=== PATIENT | female | born 1930 | race Caucasian/White ===

== ENCOUNTER 2017-02-28 15:11 | Inpatient (IN) | payer OTHER, MEDICARE ==
[~2017-02-28] VITALS: Ht 162.6 cm; Wt 97.2 kg
--- NOTE | ~2017-02-28 | O ---
[facility] [place] [address] [place] [address] OPERATIVE REPORT Name: MARLIN LOZANO Room #: 459-P [facility] IN [facility]#: [id number] Admission: 02/28/17 Attend Phys: Adolfo Sullivan MD Discharge: 03/09/17 Date of : [birth year] Report #: [id number] THIS REPORT FOR: //name// CC: Aodlfo Sullivan DATE OF SERVICE: 03/08/2017 DATE OF SERVICE: 03/08/2017 PREOPERATIVE DIAGNOSIS: Infected right total knee arthroplasty. POSTOPERATIVE DIAGNOSIS: Infected right total knee arthroplasty. PROCEDURE: Arthroscopic incision and drainage, right total knee arthroplasty. SURGEON: Delon Palencia MD. WIRE STITCHER OPERATOR: Nichol Pelayo PA-C. ANESTHESIA: LMA. TOURNIQUET TIME: 22 minutes. ESTIMATED BLOOD LOSS: Minimal. COMPLICATIONS: None. SPECIMENS: Fluid was sent for culture. CONDITION UPON LEAVING THE OPERATING ROOM: Stable. INDICATIONS FOR PROCEDURE: The patient is an 86-year-old female who has had at least a week if not 2 weeks of right knee pain and cellulitis of her right knee. She had an aspiration of her knee, found to have 49,000 white cells with 78% of these being neutrophils. She also had a positive blood culture for Strep that was present. She had an infected right total knee. After discussion with she and her son, they elected for attempt at salvage with arthroscopic I and D, and antibiotic suppression. DESCRIPTION OF PROCEDURE: Risks, benefits, alternatives, complications were discussed in detail with the patient including but not limited to risk of anesthesia, risk of damage to nerves, arteries, blood vessels, risk for infection, bleeding, continued infection, bleeding and need for reoperation. Informed consent was obtained from the patient. Right knee was appropriately marked in the preoperative holding area. WILLIS rodriguezmeronald [facility] [address] [place] [address] OPERATIVE REPORT Name: MARLIN LOZANO Bridgett Room #: 459-P [facility] IN [facility]#: [id number] Admission: 02/28/17 Attend Phys: Adolfo Sullivan MD Discharge: 03/09/17 Date of : [birth year] Report #: [id number] was given for preoperative antibiotics. She was brought to the operating room and placed in supine position on operating room table. LMA anesthesia was induced without complication. Tourniquet was placed on the right thigh. Right lower extremity was prepped and draped in normal sterile fashion. Timeout was performed properly identifying the patient and procedure as well as the instrumentation. All in the operating room were in agreement. Right lower extremity was elevated, tourniquet was inflated, tourniquet time was 23 minutes. Standard anterolateral portal was established with an #11 blade through the skin. Arthroscope was introduced into the patellofemoral compartment and there was approximately 15 mL of cloudy fluid expressed from the knee. Cultures of this were taken. Diagnostic arthroscopy was begun. A superior lateral portal was established with an outflow and there was some hypertrophic synovium in the anterior compartment and the medial and lateral gutters. A medial portal was established under arthroscopic visualization. An arthroscopic shaver was used to debride the synovium. After this, 9 liters of fluid was cycled through the knee and suctioned out for irrigation of the joint. A Hemovac drain was placed through the superior lateral portal and left in. The incision was closed with 3-0 nylon. Soft dressing of Adaptic, 4 x 4, Webril, Mitch wrap were applied. The patient tolerated this procedure well and went to the recovery room under the care of anesthesia postoperatively. <ELECTRONICALLY SIGNED> By: Delon Palencia MD 03/10/17 0727 1303 1506 Delon Palencia MD /nt
--- NOTE | ~2017-02-28 | HC ---
[facility] [place] [place] [address] CONSULTATION Name: MARLIN LOZANO Bridgett Room #: 459-P ADM IN M.R.#: [id number] Admission: 02/28/17 Attend Phys: Adolfo Sullivan MD Discharge: Date of : [birth year] Report #: [id number] THIS REPORT FOR: //name// CC: Adolfo Sullivan REASON FOR CONSULTATION: I was asked to evaluate concerning fever, lethargy and bacteremia. 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 She has issues with lymphedema in the right lower extremity. Yesterday, she developed generalized weakness, fever, chills, and increased discomfort in her right leg. Hospitalized and found to be in atrial fibrillation with rapid ventricular response. She had leukocytosis. Blood cultures were drawn and one of two showing streptococci. Placed on ceftriaxone. Her temperature has improved. Her generalized weakness persist. She has had mild headache. No cough or sputum production. No nausea or vomiting. She has had some loose stools. No dysuria or frequency. She has had issues with lower extremity edema on the right side for quite some time. She has had a mastectomy on the right and notices intertrigo in this region as well as in her groin. REVIEW OF SYSTEMS: Otherwise, noncontributory. ALLERGIES: AMOXICILLIN, MORPHINE, and SULFA. MEDICATIONS: As noted on her MAR, now on the ceftriaxone. PAST MEDICAL HISTORY, FAMILY HISTORY, AND SOCIAL HISTORY: Otherwise, unchanged from her history and physical, which was reviewed. She is a nonsmoker and has had a right total knee arthroplasty. Other history as noted. PHYSICAL EXAMINATION: VITAL SIGNS: Afebrile and hemodynamically stable. Maximum temperature was 99.7 degrees. GENERAL: She is alert and cooperative on 2 liters of oxygen per nasal cannula. Moderately obese. Intertrigo beneath the right chest skin fold and inner perineum. HEENT: Unremarkable. NECK: Supple. LUNGS: Clear. HEART: Irregular. ABDOMEN: Soft and nontender. EXTREMITIES: Right lower extremity had venous stasis dermatitis changes to the right lower extremity with 2+ edema. She had erythema extending from the ankle up to the mid portion of her pretibial skin. There is tenderness in the medial thigh as well. No tenderness in the groin. Pulses in the right foot were [facility] [address] [place] [address] CONSULTATION Name: MARLIN LOZANO Bridgett Room #: 459-P [facility] IN [facility]#: [id number] Admission: 02/28/17 Attend Phys: Adolfo Sullivan MD Discharge: Date of : [birth year] Report #: [id number] normal. Sensation was intact. LABORATORY STUDIES: Blood cultures as noted above. Sodium 137, potassium 3.5, bicarbonate 24, creatinine 0.8. Hemoglobin 13.2, white count 20.8 with 5% bands, platelet count 212,000. Lactate 1.2. Liver function tests normal. Chest x-ray clear. Urinalysis unremarkable. IMPRESSION: An 86-year-old with sepsis syndrome, noting tachycardia, generalized weakness, leukocytosis and bacteremia, suspect related to her right lower extremity cellulitis and lymphangitis. Recommend continuing ceftriaxone at a current dose. We will await identification of the bloodstream organism. Follow her white count. Leg elevation and also treat her yeast dermatitis. <ELECTRONICALLY SIGNED> By: Tad Hancock MD 03/02/17 2123 1751 1841 Tad Hancock MD /nt
--- NOTE | ~2017-02-28 | EKG ---
[address] [employer] [address] ELECTROCARDIOGRAM REPORT Name: BLAKEMARLIN A Room #: 459-P [facility] IN [facility]#: [id number] Admission: 02/28/17 Attend Phys: Adolfo Sullivan MD Discharge: Date of : [birth year] Report #: [id number] THIS REPORT FOR: //name// [facility] ED Test Date: 2017-02-28 Test Time: 15:15:59 Pat Name: MARLIN LOZANO Department: Room: 170 Gender: F Food Specialist: ANUSHKA : 1930 Requested By: Enrrique Mathew Order Number: [id number] MD: Scot Berman Measurements Intervals Bartley Rate: 123 P: FL: QRS: 42 QRSD: 76 T: -41 QT: 335 QTc: 480 Interpretive Statements Atrial fibrillation Low voltage, precordial leads Nonspecific ST and T wave abnormality Compared to ECG 02/16/2015 12:12:44 No significant change was found Electronically Signed On 03-02-2017 7:14:09 CDT by Scot Berman [email or web address] <ELECTRONICALLY SIGNED> By: Scot Berman MD, [facility] 03/02/17 0714 1515 1515 Scot Berman MD, [facility] /EPI
--- NOTE | ~2017-02-28 | HC ---
[facility] [place] [address] [place] [address] CONSULTATION Name: MARLIN LOZANO Bridgett Room #: 459-P ADM IN ..#: [id number] Admission: 02/28/17 Attend Phys: Adolfo Sullivan MD Discharge: Date of : [birth year] Report #: [id number] THIS REPORT FOR: //name// CC: Adolfo Sullivan DATE OF SERVICE: 03/03/2017 HISTORY OF PRESENT ILLNESS: The patient is an 86-year-old white female with prior history of hypertension and prior pulmonary embolism in 2009; was out in the community for a Dermatology visit when she could not get out of the car. She was admitted with weakness, noted to have atrial fibrillation with a rapid ventricular rate. She was placed on IV Cardizem. [place] [address]. She was diagnosed with sepsis secondary to cellulitis, right lower extremity. She was noted to have acute hypoxemic respiratory failure; likely mild COPD exacerbation. Cardiology has been closely involved as well as Infectious Disease. She does have a total knee arthroplasty that is painful and she is on ceftriaxone. Infectious Disease is ordered an x-ray and Orthopedics is to evaluate. She has had some issues with urinary incontinence and has a Renee catheter. We are seeing her in rehabilitation medicine consultation. PAST MEDICAL HISTORY: Includes hysterectomy, right mastectomy, hypertension, degenerative arthritis of both knees, prior right total knee arthroplasty 2009, femoral vein through popliteal vein DVT, left lung pulmonary embolism, left leg DVT extending from the left common, atrial fibrillation. HABITS: No history of tobacco or ETOH. MEDICATIONS: Please see the full medication listing. ALLERGIES: AMOXICILLIN, MORPHINE AND SULFA. SOCIAL HISTORY: Lives in a condominium alone. Zero to two steps in, legally blind. She does have a 4-wheeled walker, but apparently fell and it is not working very well, so she has been using a 3-wheeled walker. She does have sleep apnea, is on CPAP with 4 liters at night. She was not on oxygen during the day. There is a son that is in the area that drives her to her appointments. REVIEW OF SYSTEMS: She is noted to be legally blind with macular degeneration. No current complaints of chest pain, shortness of breath or abdominal discomfort. She has the right knee pain with the prior total knee arthroplasty. No specific complaints of ankle discomfort or left lower extremity pain per se. She does complain of overall generalized weakness. She does have the catheter in her bladder for her noted incontinence. [facility] [address] [place] [address] CONSULTATION Name: MARLIN LOZANO Room #: 459-P [facility]#: [id number] Admission: 02/28/17 Attend Phys: Adolfo Sullivan MD Discharge: Date of : [birth year] Report #: [id number] PHYSICAL EXAMINATION: GENERAL: An 86-year-old white female in no obvious distress. VITAL SIGNS: Last recorded temperature 97.7, pulse 98, respirations 20, blood pressure 126/71. The patient is alert, appropriate. HEENT: Facies are symmetric. Nasal prong O2 is in place. EXTREMITIES: She has functional range of motion of both upper extremities. Strength is a grade 4- to 3+/5. DTRs are trace to 1. In her lower extremities, there is some residual erythema of the right lower extremity. She has an old right knee incision, which appears well healed. She does have some discomfort with attempted movement of that right lower extremity. I would grade her strength at probably a 3+/5. Left lower extremity strength is probably 3+ to 4-/5. No focal calf swelling. NEUROLOGIC: Tone appeared to be intact. She is min assist with sit to stand. She ambulated 45 feet front-wheeled walker, contact guard assistance. She is currently on 2-1/2 liters nasal prong O2. IMPRESSION: An 86-year-old white female with the following problem list: 1. Medical complexity with generalized debilitation. 2. Sepsis secondary to cellulitis of the right lower extremity with bacteremia. 3. Acute hypoxic respiratory failure likely due to mild chronic obstructive pulmonary disease exacerbation. 4. Atrial fibrillation with rapid ventricular rate. 5. Hypertension. 6. History of pulmonary embolism. 7. Legally blind. PLAN: Agree with x-ray of the right knee and Orthopedics involvement. She will likely benefit from an acute in-hospital inpatient rehabilitation stay when medically cleared. At this point, we will follow along with you. By: 1435 1515 Arturo Russo MD /
[~2017-02-28 15:11] MED LIST: ACETAMINOPHEN-1 EAC1 PO; ADULT LOW DOSE81 MG PO; ALDACTONE50 MG PO; ASPIRIN325 PO; CARDIZEM CD240 MG PO; COUMADIN 1MG TAB1 M1 PO; COUMADIN 4 MG TA4 M1 PO; FUROSEMIDE 40 M40 M1 PO; GNP CALCIUM PO; HYDROCODON-ACE1 EAC7 PO; HYDROCODON-ACE1 EAC8 PO; IMDUR 30 MG TAB30 M1 PO; LANOXIN 0.250.25 M1 PO; LANOXIN 0.250.25 MG PO; LASIX 20 MG TAB20 MG PO; LATANOPROST 0.2.5 ML; NORCO 5-325 TA1 EACH PO; PRESERVISION T1 EACH PO; TENORMIN25 MG PO; TIMOPTIC2.5 M1; VALIUM2 MG PO
[2017-02-28 15:12] VITALS: BP 157/82
[2017-02-28 15:53] LABS: HEMATOCRIT 39.8 % (37.0-47.0); HEMOGLOBIN 13.2 gm/dL (12.0-15.0); MCH 26.8 pg (26.0-34.0); MCHC 33.2 g/dL (28.0-37.0); MCV 80.8 fL (80.0-100.0); PLATELET COUNT 212 thou/uL (150-400); RBC 4.92 mil/uL (4.20-5.00); RDW 14.4 % (10.5-14.5); WBC 20.8 thou/uL (4.0-11.0)
[2017-02-28 15:54] LABS: MANUAL DIFF YES
[2017-02-28 16:02] LABS: ANION GAP 10 mmol/L (7-16); BUN 15 mg/dL (7-18); CALCIUM 9.4 mg/dL (8.5-10.1); CHLORIDE 104 mmol/L (98-107); CO2 25 mmol/L (21-32); CREATININE 0.9 mg/dL (0.6-1.0); GLUCOSE 104 mg/dL (74-106); POTASSIUM 3.6 mmol/L (3.5-5.1); SODIUM 139 mmol/L (136-145)
[2017-02-28 16:14] LABS: ALBUMIN 3.6 g/dL (3.4-5.0); ALKALINE PHOSPHATASE 71 U/L (46-116); NT-PRO BRAIN NAT PEPTIDE 1053 pg/mL (<300); SGOT 18 U/L (15-37); SGPT 17 U/L (30-65); TOTAL BILIRUBIN 0.7 mg/dL (<0.1-1.0); TOTAL PROTEIN 6.9 g/dL (6.4-8.2); TROPONIN-I < 0.04 ng/mL (<0.04-0.07)
[2017-02-28 16:45] LABS: ABSOLUTE NEUTROPHILS 18.1 thou/uL (1.4-8.2); PLATELET ESTIMATE NORMAL; TOTAL CELL COUNT 100
[2017-02-28] MEDS ORDERED: PRINIVIL20 M1 PO (17:15)
[2017-02-28 17:16] LABS: APTT 36.4 Seconds (24.5-32.8); INR 2.3; PROTIME 23.4 Seconds (9.3-11.4)
[2017-02-28] MEDS ORDERED: MAXZIDE-25 MG1 EACH PO (17:16)
[2017-02-28 17:31] LABS: URINE BILIRUBIN NEGATIVE (Negative); URINE BLOOD 1+ (Negative); URINE COLOR YELLOW; URINE GLUCOSE-RANDOM* NEGATIVE (Negative); URINE KETONES TRACE (Negative); URINE LEUKOCYTES-REFLEX NEGATIVE (Negative); URINE PROTEIN (DIPSTICK) NEGATIVE (Negative); URINE UROBILINOGEN 0.2 E.U./dl (0.2-1.0)
[2017-02-28 17:45] LABS: CASTS None Seen /LPF (None Seen); CRYSTALS None Seen /LPF (None Seen); SQUAMOUS 0-3 Few /LPF (0-3); URINE RBC 3-10 Few /HPF (0-2); URINE WBC-REFLEX None Seen /HPF (0-5)
[2017-02-28 17:55] VITALS: BP 172/95
[2017-02-28 18:27] VITALS: BP 164/71
[2017-02-28 18:58] VITALS: BP 151/65
[2017-03-01] VITALS: BP 161/84
[2017-03-01 04:04] VITALS: BP 151/71
[2017-03-01 06:11] LABS: HEMATOCRIT 37.2 % (37.0-47.0); HEMOGLOBIN 12.4 gm/dL (12.0-15.0); MCH 26.7 pg (26.0-34.0); MCHC 33.3 g/dL (28.0-37.0); MCV 80.1 fL (80.0-100.0); RBC 4.65 mil/uL (4.20-5.00); RDW 14.2 % (10.5-14.5); WBC 16.8 thou/uL (4.0-11.0)
[2017-03-01 06:20] LABS: CALCIUM 9.3 mg/dL (8.5-10.1); CREATININE 0.8 mg/dL (0.6-1.0); POTASSIUM 3.5 mmol/L (3.5-5.1)
[2017-03-01 08:03] VITALS: BP 158/92
[2017-03-01 16:20] VITALS: BP 155/93
[2017-03-02 04:42] VITALS: BP 188/103
[2017-03-02 07:05] VITALS: BP 172/82
[2017-03-02 08:00] VITALS: BP 172/82
[2017-03-02 11:06] LABS: HEMATOCRIT 39.8 % (37.0-47.0); HEMOGLOBIN 13.3 gm/dL (12.0-15.0); MCH 26.8 pg (26.0-34.0); MCHC 33.4 g/dL (28.0-37.0); MCV 80.2 fL (80.0-100.0); RBC 4.96 mil/uL (4.20-5.00); RDW 14.2 % (10.5-14.5); WBC 14.6 thou/uL (4.0-11.0)
[2017-03-02 11:11] LABS: CALCIUM 9.8 mg/dL (8.5-10.1); CREATININE 0.8 mg/dL (0.6-1.0); POTASSIUM 3.6 mmol/L (3.5-5.1)
[2017-03-02 12:06] VITALS: BP 151/78
[2017-03-02 19:37] VITALS: BP 140/80
[2017-03-03 05:06] VITALS: BP 141/72
[2017-03-03 07:21] LABS: HEMATOCRIT 40.5 % (37.0-47.0); HEMOGLOBIN 13.5 gm/dL (12.0-15.0); MCH 26.8 pg (26.0-34.0); MCHC 33.3 g/dL (28.0-37.0); MCV 80.3 fL (80.0-100.0); RBC 5.05 mil/uL (4.20-5.00); RDW 14.3 % (10.5-14.5); WBC 13.5 thou/uL (4.0-11.0)
[2017-03-03 07:32] LABS: CALCIUM 10.4 mg/dL (8.5-10.1); CREATININE 0.8 mg/dL (0.6-1.0); POTASSIUM 3.5 mmol/L (3.5-5.1)
[2017-03-03 08:20] VITALS: BP 134/66
[2017-03-03 11:42] VITALS: BP 126/71
[2017-03-03 16:24] VITALS: BP 134/71
[2017-03-03 19:48] VITALS: BP 109/65
[2017-03-04 04:20] VITALS: BP 121/74
[2017-03-04 07:54] LABS: HEMATOCRIT 39.1 % (37.0-47.0); HEMOGLOBIN 13.3 gm/dL (12.0-15.0); MCH 27.1 pg (26.0-34.0); MCV 79.8 fL (80.0-100.0); RBC 4.9 mil/uL (4.20-5.00); RDW 14.4 % (10.5-14.5); WBC 10.3 thou/uL (4.0-11.0)
[2017-03-04 08:04] LABS: CREATININE 0.8 mg/dL (0.6-1.0); POTASSIUM 3.1 mmol/L (3.5-5.1)
[2017-03-04 08:05] VITALS: BP 128/78
[2017-03-04 08:06] LABS: PROTIME 19.2 Seconds (9.3-11.4)
[2017-03-04 12:00] VITALS: BP 118/64
[2017-03-04 13:57] LABS: BF NUCLEATED CELLS 49802; BF RBC 19666
[2017-03-04 14:14] LABS: BF CRYSTALS No Crystals seen
[2017-03-04 14:23] LABS: BF NEUTROPHILS 81
[2017-03-04 14:27] LABS: CLARITY CLOUDY; COLOR YELLOW; TOTAL VOLUME 10 mL
[2017-03-04 14:29] LABS: MANUAL DIFF YES
[2017-03-04 16:00] VITALS: BP 116/68
[2017-03-04 20:11] VITALS: BP 126/70
[2017-03-05 04:28] VITALS: BP 123/67
[2017-03-05 07:15] VITALS: BP 121/68
[2017-03-05 11:30] VITALS: BP 113/56
[2017-03-05 15:07] VITALS: BP 112/59
[2017-03-05 19:37] VITALS: BP 111/53
[2017-03-06 04:24] VITALS: BP 121/62
[2017-03-06 07:19] VITALS: BP 116/73
[2017-03-06 10:36] LABS: HEMOGLOBIN 13.5 gm/dL (12.0-15.0); MCHC 33.6 g/dL (28.0-37.0); MCV 80.4 fL (80.0-100.0); RBC 4.97 mil/uL (4.20-5.00); RDW 14.3 % (10.5-14.5); WBC 12.8 thou/uL (4.0-11.0)
[2017-03-06 10:47] LABS: CALCIUM 10.8 mg/dL (8.5-10.1); CREATININE 0.9 mg/dL (0.6-1.0); POTASSIUM 4.1 mmol/L (3.5-5.1)
[2017-03-06 11:04] VITALS: BP 125/80
[2017-03-06 15:07] VITALS: BP 116/78
[2017-03-06 20:19] VITALS: BP 133/57
[2017-03-07 04:37] VITALS: BP 111/64
[2017-03-07 04:46] LABS: HEMATOCRIT 38.3 % (37.0-47.0); HEMOGLOBIN 12.9 gm/dL (12.0-15.0); MCH 26.9 pg (26.0-34.0); MCHC 33.7 g/dL (28.0-37.0); MCV 79.9 fL (80.0-100.0); RBC 4.79 mil/uL (4.20-5.00); RDW 14.3 % (10.5-14.5); WBC 13.3 thou/uL (4.0-11.0)
[2017-03-07 05:15] LABS: APTT 48.5 Seconds (24.5-32.8); PROTIME 19.8 Seconds (9.3-11.4)
[2017-03-07 05:41] LABS: CALCIUM 10.7 mg/dL (8.5-10.1); CREATININE 0.9 mg/dL (0.6-1.0); POTASSIUM 4.6 mmol/L (3.5-5.1)
[2017-03-07 07:33] VITALS: BP 122/62
[2017-03-07 11:52] VITALS: BP 109/56
[2017-03-07 16:05] VITALS: BP 131/78
[2017-03-07 19:20] VITALS: BP 115/57
[2017-03-08] VITALS (11 sets, daily range): BP systolic 110–140; BP diastolic 45–87
[2017-03-08 07:05] LABS: HEMATOCRIT 38.6 % (37.0-47.0); HEMOGLOBIN 13.1 gm/dL (12.0-15.0); MCH 27.2 pg (26.0-34.0); MCV 79.8 fL (80.0-100.0); PLATELET COUNT 381 thou/uL (150-400); RBC 4.83 mil/uL (4.20-5.00); RDW 14.4 % (10.5-14.5); WBC 11.8 thou/uL (4.0-11.0)
[2017-03-08 07:08] LABS: MANUAL DIFF YES
[2017-03-08 07:21] LABS: CALCIUM 10.5 mg/dL (8.5-10.1); MAGNESIUM 2.1 mg/dL (1.8-2.4); POTASSIUM 4.4 mmol/L (3.5-5.1)
[2017-03-08 07:26] LABS: INR 1.7; PROTIME 16.2 Seconds (9.3-11.4)
[2017-03-08 08:11] LABS: ABSOLUTE NEUTROPHILS 8.4 thou/uL (1.4-8.2); METAMYELOCYTES 6 %; MYELOCYTES 1 %; TOTAL CELL COUNT 100
[2017-03-08 08:12] LABS: ANISOCYTOSIS SLIGHT
[2017-03-09 04:13] VITALS: BP 111/52
[2017-03-09 06:33] LABS: HEMATOCRIT 38.4 % (37.0-47.0); HEMOGLOBIN 12.5 gm/dL (12.0-15.0)
[2017-03-09 07:36] VITALS: BP 112/63
[2017-03-09] MEDS ORDERED: AMBIEN 10 MG TA10 MG PO (09:15)
[2017-03-09] MEDS ORDERED: COLACE 100 MG100 MG PO (09:15)
[2017-03-09] MEDS ORDERED: HYDROCODON-ACE1 EAC7 PO (09:15)
[2017-03-09] MEDS ORDERED: OXYBUTYNIN 5 MG5 M1 PO (09:15)
== END 2017-03-09 18:37 | DRG 463 ==
LOC: ER 15:11 → EROBS 17:42 → 4W 17:42
PROVIDERS: Hospitalist; Internal Medicine; Orthopaedic Surgery; Physician Assistant; Specialist
PROC: 0JBN0ZZ Excision of Right Lower Leg Subcutaneous Tissue and Fascia, Open Approach (ICD-10-PCS; principal; 2017-03-08)
PROC: 0S9C4ZX Drainage of Right Knee Joint, Percutaneous Endoscopic Approach, Diagnostic (ICD-10-PCS; principal; 2017-03-08)
DX: T84.53XA Infection and inflammatory reaction due to internal right knee prosthesis, initial encounter (principal); A41.9 Sepsis, unspecified organism; J96.01 Acute respiratory failure with hypoxia; L03.115 Cellulitis of right lower limb; J44.1 Chronic obstructive pulmonary disease with (acute) exacerbation; M00.9 Pyogenic arthritis, unspecified; I48.2 Chronic atrial fibrillation; N81.10 Cystocele, unspecified; N39.46 Mixed incontinence; I10 Essential (primary) hypertension; Z96.651 Presence of right artificial knee joint; H54.8 Legal blindness, as defined in USA; E66.9 Obesity, unspecified; Y83.8 Other surgical procedures as the cause of abnormal reaction of the patient, or of later complication, without mention of misadventure at the time of the procedure; Z68.36 Body mass index [BMI] 36.0-36.9, adult; Z86.711 Personal history of pulmonary embolism; Y92.89 Other specified places as the place of occurrence of the external cause; Z86.718 Personal history of other venous thrombosis and embolism; Z79.01 Long term (current) use of anticoagulants; Z79.899 Other long term (current) drug therapy; Z90.710 Acquired absence of both cervix and uterus; Z90.11 Acquired absence of right breast and nipple; Z88.1 Allergy status to other antibiotic agents; Z88.2 Allergy status to sulfonamides; Z88.5 Allergy status to narcotic agent; Z85.3 Personal history of malignant neoplasm of breast
CPT/HCPCS: 10045; 27001; 50010; 50101; 50405; 51038; 54170; 56526; 62110; 62900; 70005

== ENCOUNTER 2017-03-09 10:50 | Inpatient (IN) | payer OTHER, MEDICARE ==
[~2017-03-09] VITALS: Ht 165.1 cm; Wt 93.7 kg
--- NOTE | ~2017-03-09 | H ---
[facility] [place] [address] [place] [address] HISTORY AND PHYSICAL Name: MARLIN LOZANO Room #: 511-P ADM IN ..#: [id number] Admission: 03/09/17 Attend Phys: Arturo Russo MD Discharge: Date of : [birth year] Report #: [id number] THIS REPORT FOR: //name// CC: Arturo Herr DATE OF SERVICE: 03/09/2017 HISTORY OF PRESENT ILLNESS: The patient is an 86-year-old white female with a prior history of hypertension and prior pulmonary embolism in 2009, was out in the community for dermatology visit, when she could not get out of the car. She was admitted with weakness, noted to have atrial fibrillation with rapid ventricular rate. She is placed on IV Cardizem. She also had an elevated white count of approximately 20,000. She was diagnosed with sepsis secondary to cellulitis, right lower extremity. She was noted to have acute respiratory failure likely mild COPD exacerbation. Cardiology was involved as well as infectious disease. She has a total knee arthroplasty was known to be painful and was noted to have drainage that was purulent appearing. She was diagnosed with an infected right total knee arthroplasty and underwent arthroscopic I and D on 03/08/2017. She is allowed weightbearing as tolerated on the right lower extremity with range of motion as tolerated. She also has some issues with urinary incontinence and has had pelvic floor prolapse. Urology is involved and she has the indwelling Renee catheter. She does have medical complexity with generalized debilitation and is now being admitted for acute in-hospital inpatient rehabilitation. PAST MEDICAL HISTORY: Includes hysterectomy, right mastectomy, hypertension, degenerative arthritis of both knees, prior right total knee arthroscopy 2009, femoral vein through the popliteal vein DVT, left lung pulmonary embolism, left leg DVT extending from the left common, and history of atrial fibrillation. HABITS: No history of tobacco or ETOH. MEDICATIONS: Please see the full medication listing. ALLERGIES: AMOXICILLIN, MORPHINE AND SULFA. SOCIAL HISTORY: Lives in [facility] alone, 0-2 steps in, legally blind. She does have a 4-wheeled walker, but apparently fell and it was not working very well and so she has been using a 3-wheeled walker. She has sleep apnea, is on CPAP with 4 liters at night. Was not on O2 during the day. She has a son in the area that drives to her appointments. REVIEW OF SYSTEMS: She is legally blind with macular degeneration. No current complaints of chest pain, shortness of breath or abdominal discomfort. Some right knee discomfort as expected post the surgery yesterday. She does have the [facility] [address] [place] [address] HISTORY AND PHYSICAL Name: MARLIN LOZANO Bridgett Room #: 511-P [facility] IN ..#: [id number] Admission: 03/09/17 Attend Phys: Arturo Russo MD Discharge: Date of : [birth year] Report #: [id number] pelvic floor prolapse with the incontinence issues premorbidly. PHYSICAL EXAMINATION: GENERAL: She is a pleasant 86-year-old white female in no obvious distress. VITAL SIGNS: Last recorded temperature 97.9, pulse 84, respirations 18, blood pressure 117/69. The patient is alert, pleasant. HEENT: Appeared to be benign. NEUROLOGIC: Cranial nerves grossly intact. Facies are symmetric. CHEST: Sounded clear to auscultation. CARDIOVASCULAR: Regular rate and rhythm. ABDOMEN: Bowel sounds positive, nontender. GENITOURINARY AND RECTAL: Deferred. EXTREMITIES: Functional range of motion of the upper extremities. Strength is a grade 4- to 3+/5. DTRs are trace to 1. Lower extremities, no focal calf swelling, functional range of motion with strength grade 3+ to 4-/5. DTRs are trace to 1. She has been needing assistance with basic functional mobility skills. ASSESSMENT: An 86-year-old white female with the following problem list: 1. Medical complexity with generalized debilitation. 2. Infected right total knee arthroplasty status post arthroscopic I and D 03/08/2017 weightbearing as tolerated. 3. Sepsis secondary to cellulitis of the right lower extremity with bacteremia. 4. Acute hypoxic respiratory failure likely due to mild chronic obstructive pulmonary disease exacerbation. 5. Atrial fibrillation with rapid ventricular rate. 6. Hypertension. 7. History of pulmonary embolism. 8. Legally blind. PLAN: The patient is admitted for an acute in-hospital inpatient rehabilitation stay. From a postadmission physician evaluation perspective, there are no relevant changes since the preadmission screening. Please see the above review of prior and current medical and functional conditions and comorbidities. Please see the patient's previous and current functional status. As far as risk of complication, she does have multiple medical comorbidities as noted above. Initial plan of care involves the interdisciplinary acute inpatient rehabilitation program with the goal of maximizing the patient's functional independence, so that she can hopefully return back to her prior living situation. Prognosis is reasonably good with estimated length of stay probably at least 10 days to 2 weeks and potentially longer if warranted. Potential barriers would include her multiple medical comorbidities and decreased functional status. The patient meets diagnostic criteria for an acute in-hospital inpatient rehabilitation stay. She meets medical necessity criteria and we will have the [address] [address] HISTORY AND PHYSICAL Name: MARLIN LOZANO Room #: 511-P ADM IN [facility].#: [id number] Admission: 03/09/17 Attend Phys: Arturo Russo MD Discharge: Date of : [birth year] Report #: [id number] [employer] consultant physicians continue to follow while she is on rehabilitation. She does have the tolerance for an acute inpatient rehab level and has appropriate discharge goals back to the home setting. <ELECTRONICALLY SIGNED> By: Arturo Russo MD 03/17/17 1350 1532 1604 Arturo Russo MD /nt
--- NOTE | ~2017-03-09 | D ---
[facility] [address] [place] [address] DISCHARGE SUMMARY Name: MARLIN LOZANO Room #: 511-P [facility] IN M.R.#: [id number] Admission: 03/09/17 Attend Phys: Arturo Russo MD Discharge: 03/21/17 Date of : [birth year] Report #: [id number] THIS REPORT FOR: //name// CC: Arturo Herr DATE OF SERVICE: 03/21/2017 ADDENDUM Missed some therapies on Tuesday, March 18 and 03/19/2017 secondary to nausea and partial small bowel obstruction/ileus. <ELECTRONICALLY SIGNED> By: Arturo Russo MD 04/06/17 1125 0800 0809 Arturo Russo MD /nt
--- NOTE | ~2017-03-09 | HC ---
[facility] [place] [address] [place] [address] CONSULTATION Name: MARLIN LOZANO Room #: 511-P ADM IN M.R.#: [id number] Admission: 03/09/17 Attend Phys: Arturo Russo MD Discharge: Date of : [birth year] Report #: [id number] THIS REPORT FOR: //name// CC: Arturo Herr DATE OF SERVICE: 03/12/2017 NEUROBEHAVIORAL STATUS EXAM ATTENDING PHYSICIAN: Arturo Russo M.D. FIREWORKS DISPLAY SPECIALIST: Adin Mulligan, PhD. CLINICAL PRESENTATION: The patient is an 86-year-old female admitted to the rehabilitation unit at [facility] for a comprehensive inpatient rehabilitation program to improve functional mobility, activities of daily living and self-care and mental status secondary to deficits from medical complexity and generalized debilitation. She had a deterioration in functioning that was marked by confusion and disorientation following an appointment with her bodywork therapist. The patient was admitted and diagnosed with an infected right total knee, sepsis secondary to cellulitis of the right lower extremity, acute hypoxic respiratory failure likely due to mild chronic obstructive pulmonary disease, atrial fibrillation with rapid ventricular rate, hypertension, history of pulmonary embolism and legal blindness. A complete description of her medical condition, history and medications can be found in her medical record. Neuropsychological consultation was requested to provide assistance in the assessment of cognitive and emotional status and to provide recommendations and services. Prior to this most recent admission, she was living independently in her own home. She has 3 sons. Her family is very supportive and provides assistance in the management of medication. The patient has Meals on Wheels brought to the home. 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 TECHNIQUES UTILIZED: Clinical interview, review of medical records, staff consultation and behavioral observation, mini mental status exam 2 standard version, calibrated ideational fluency assessment (letter and category fluency) and brief abstract reasoning test. EXAMINATION FINDINGS: The patient was alert and cooperative with the assessment. She accurately describes events surrounding her admission. However, she does acknowledge an uncertainty about the reason for her hospitalization and for the deterioration in her medical condition. The [address] [address] CONSULTATION Name: MARLIN LOZANO Room #: 511-P [facility] IN .R.#: [id number] Admission: 03/09/17 Attend Phys: Arturo Russo MD Discharge: Date of : [birth year] Report #: [id number] patient does not present with aphasia. There is no evidence of thought disorder. She does not have auditory hallucinations. However, the patient describes visual hallucinations. 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 Her family indicates that she had a retina procedure and then reported visual hallucinations subsequent to the procedure. 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 It is associated with release hallucinations. The performance on the MMSE 2 brief version was extremely low with a raw score of 12 of 16 and a T score 28 and percentile rank of 1. She was 3/3 for initial registration, 3/5 for orientation to time and 5/[address]. She was 1/3 correct for immediate recall of 3 items after a brief time delay and distraction. The patient was 0/5 for serial 7's. She reported having severe macular degeneration that interferes with her ability to complete a naming task. She also was not administered a copying task for the assessment of visual spatial functioning because of the macular degeneration. Letter fluency was extremely low with a raw score of 11, T score 28 and percentile rank of 1. Category fluency was in the borderline range with a raw score 32, T score 31, percentile rank of 3. Total verbal fluency was extremely low with a raw score 33, T score 24 and percentile rank of less than 1. On brief abstract reasoning test, she was 2/8 suggesting moderate to severe impairment with higher level conceptual reasoning. Decreased verbal fluency often suggests an executive dysfunction. DIAGNOSTIC IMPRESSION: Neurocognitive disorder, unspecified, without behavior disorder -- extent to be determined, currently in the moderate to severe range. RECOMMENDATIONS: The patient does recognize difficulty with her cognitive functioning. She also reports tiredness and fatigue and decreased appetite. Increased supervision and structure will be necessary upon her return home. The patient will require increased assistance in the management of medication. She does not appear impulsive; however, increased supervision and structure will be necessary for her to maintain safety. The patient is likely to be experiencing a greater degree of impairment in cognition than would be apparent on the surface. Thank you very much for allowing me to provide the consultation on this patient. <ELECTRONICALLY SIGNED> By: Adin Mulligan, PhD 03/13/17 1535 [id number] Adin Mulligan, PhD /nt
--- NOTE | ~2017-03-09 | PLAN ---
[facility] [place] [address] [place] [address] REHAB UNIT PLAN OF CARE Name: MARLIN LOZANO Room #: 511-P ADM IN M.R.#: [id number] Admission: 03/09/17 Attend Phys: Arturo Russo MD Discharge: Date of : [birth year] Report #: [id number] THIS REPORT FOR: //name// CC: Arturo Herr DATE OF SERVICE: 03/11/2017 PROGRESS NOTE/OVERALL PLAN OF CARE The patient is seen back today in followup. She is in no distress. Temperature 36.9, pulse 76, respirations 20, blood pressure 105/55. The patient is alert, pleasant. HEENT appeared to be benign. She does not have any calf swelling. Sit to stand transfers are mod assist and she is ambulating 15 feet min assist with a front-wheeled walker. In occupational therapy, lower body dressing is dependent, upper body dressing is mod assist. As far as pulmonary issue, she is on 2-4 liters nasal prong O2. ASSESSMENT: 1. Medical complexity with generalized debilitation. 2. Pulmonary rehabilitation. 3. Infected right total knee arthroplasty, status post arthroscopic I and D on 03/08/2017, weightbearing as tolerated. 4. Acute hypoxic respiratory failure, likely due to mild chronic obstructive pulmonary disease exacerbation. 5. Sepsis secondary to cellulitis of the right lower extremity with bacteremia. 6. Atrial fibrillation with rapid ventricular rate. 7. Hypertension. 8. History of pulmonary embolism. 9. Legally blind. PLAN: The overall plan of care is based on the preadmission screen, post-admission physician evaluation and information garnered from therapy assessments. 1. Estimated length of stay is probably at least 2 weeks pending progress. 2. Medical prognosis is reasonably good. 3. Anticipated interventions include the interdisciplinary acute inpatient rehabilitation program, PT and OT working with her, rehab nursing assisting regarding medication management, skin care prophylaxis, bowel and bladder issues and nursing education. We will have the multiple senior science consultant physicians that are following while on rehabilitation. 4. Anticipated functional outcomes would be for her to ideally become independent using the walker with mobility and ADLs, so that she can return back home. Hopefully, we can wean off her oxygen during the day as well. 5. Discharge destination would be back to her condominium. 6. Expected therapy by discipline includes PT and OT 1-1/2 [place] [address] REHAB UNIT PLAN OF CARE Name: MARLIN LOZANO Room #: 511-P [facility] IN [facility]#: [id number] Admission: 03/09/17 Attend Phys: Arturo Russo MD Discharge: Date of : [birth year] Report #: [id number] five days a week throughout the duration of the acute inpatient rehabilitation stay. <ELECTRONICALLY SIGNED> By: Arturo Russo MD 03/17/17 1350 [id number] Arturo Russo MD /nt
--- NOTE | ~2017-03-09 | HC ---
[facility] [place] [address] [place] [address] CONSULTATION Name: MARLIN LOZANO Room #: 511-P ADM IN .R.#: [id number] Admission: 03/09/17 Attend Phys: Arturo Russo MD Discharge: Date of : [birth year] Report #: [id number] THIS REPORT FOR: //name// CC: Arturo Mena MD DATE OF SERVICE: 03/18/2017 ATTENDING PHYSICIAN: Arturo Russo MD CONSULTING PHYSICIAN: Maico Mena MD REASON FOR CONSULTATION: Abdominal distention. HISTORY OF PRESENT ILLNESS: This is an 86-year-old female patient who is being seen on the inpatient rehab floor. She was admitted with an infection of her right total knee arthroplasty and had undergone incision and drainage earlier this month. Since being transferred to rehab, she has had difficulty with increased abdominal distention and emesis. She was being planned for dismissal soon. She underwent a KUB today, which showed a nonspecific bowel gas pattern with gaseous distention of several small-bowel loops within the mid and right abdomen suggestive of an ileus or partial small-bowel obstruction. I have been asked to see the patient for further evaluation and treatment. She reports that her distention is worse today despite having passed a bowel movement this morning after being given a laxative yesterday and suppository this morning. She is usually constipated for as long as a week at a time. Her last bowel movement before today's bowel movement was 2-3 days ago. She denies pain, nausea, or vomiting. PAST MEDICAL HISTORY: Significant for COPD, DVT and pulmonary embolism, atrial fibrillation, hypertension, arthritis, legal blindness, and obstructive sleep apnea with CPAP. PAST SURGICAL HISTORY: Includes hysterectomy, right mastectomy, right total knee arthroplasty, and recent arthroscopic incision and drainage of right total knee arthroplasty. MEDICATIONS: Please see the hospital chart for details. These include hydrocodone, Coumadin, nystatin, pantoprazole, ceftriaxone, hydrochlorothiazide/triamterene, lisinopril, diltiazem, oxybutynin, docusate, breathing treatments and p.r.n. medications. ALLERGIES: SULFA DRUGS cause lethargy and nausea, MORPHINE causes vomiting, and AMOXICILLIN causes nausea. [address] [address] CONSULTATION Name: MARLIN LOZANO Bridgett Room #: 511-P [facility] IN .R.#: [id number] Admission: 03/09/17 Attend Phys: Arturo Russo MD Discharge: Date of : [birth year] Report #: [id number] FAMILY HISTORY: Reviewed and noncontributory to this hospitalization. SOCIAL HISTORY: [facility] She denies use of tobacco, alcohol, or illicit drugs. REVIEW OF SYSTEMS: As per history of present illness. In addition: GENERAL: The patient denies unintentional weight loss. Denies fever or chills. HEENT: Denies changes in taste, vision, hearing, or smell. RESPIRATORY: Denies worsening shortness of breath or asthma. She has a history of DVT/PE and pulmonary embolism. CARDIOVASCULAR: Denies chest pain or palpitations. GASTROINTESTINAL: As per history of present illness. Denies bright red blood per rectum. She has not undergone a prior colonoscopy. GENITOURINARY: Denies dysuria or increased urinary frequency. ENDOCRINE: Denies polydipsia, polyuria, heat or cold intolerance. NEUROLOGIC: Denies headaches, numbness, or tingling. PSYCHIATRIC: Denies depression, anxiety, or suicidal ideations. SKIN AND INTEGUMENTARY: Denies new skin lesions, rashes, or moles. HEMATOLOGIC: Denies easy bleeding, bruising, or anemia. All other review of systems is negative. PHYSICAL EXAMINATION: VITAL SIGNS: Temperature 98.0, blood pressure 146/84, pulse 88, respirations 16, and weight 93.7 kg. GENERAL: This is an obese 86-year-old female patient, in no acute distress. She is friendly and cooperative. HEENT: Atraumatic, normocephalic with moist mucosal membranes. NECK: Supple. No appreciable lymphadenopathy. Trachea is midline. CHEST: Clear bilaterally. No crackles or wheezes. CARDIOVASCULAR: Regular rate and rhythm. ABDOMEN: Soft, but distended. She has no tenderness to palpation. No palpable masses. No appreciable hernias. Her abdomen is tympanitic. GENITOURINARY: Normal external female genitalia. EXTREMITIES: No clubbing, cyanosis, or edema. Right knee dressing intact. NEUROLOGIC: Cranial nerves grossly intact. PSYCHIATRIC: Normal mood and affect. SKIN AND INTEGUMENTARY: No acute inflammatory changes, rashes, or lesions are present. LABORATORY DATA: Most recent CBC is from 03/14/2017, showing a white blood cell count of 11.0, hemoglobin 11.5, hematocrit 34.4, and platelets 392. Also from March 14, the patient's electrolytes showed a sodium of 136, potassium 4.2, chloride 99, CO2 of 31, BUN 23, creatinine 1.0, and glucose 101. INR from today is 2.3. [address] [address] CONSULTATION Name: MARLIN LOZANO Room #: 511-P [facility] IN [place]#: [id number] Admission: 03/09/17 Attend Phys: Arturo Russo MD Discharge: Date of : [birth year]/16/[birth year] Report #: [id number] RADIOLOGIC STUDIES: Single view KUB showed a nonspecific bowel gas pattern with mild gaseous distention of several small-bowel loops within the mid and right abdomen reflective of ileus or partial small-bowel obstruction. IMPRESSION AND PLAN: This is an 86-year-old female patient with the above listed comorbidities, who has abdominal distention, but no significant abdominal pain. She has been nauseated and vomiting and passed a bowel movement today after being given laxatives and suppositories. She may be obstructed, but may also have an ileus or chronically dilated bowel. As she is currently without nausea or vomiting, my recommendation is that we rest her bowel, but check a KUB in upright in the morning. Further recommendations will be made pending results of the study. We did discuss the pathophysiology and natural history of bowel obstructions particularly in relation to previous operations. She has undergone a hysterectomy through a lower midline incision and could certainly have adhesions as a result of that. We discussed the treatment alternatives and surgical options. Often, bowel obstructions secondary to adhesions resolved without surgical intervention. We will avoid placement of a nasogastric tube for now unless she develops worsening symptoms. We will plan to check a KUB in upright tomorrow morning and go from there. I sincerely appreciate the opportunity to participate in the care of this patient and we will leave further recommendations and orders in the electronic medical record as appropriate. Thank you very much. <ELECTRONICALLY SIGNED> By: Maico Mena MD, FACS 03/19/17 1124 1700 [id number] Maico Mena MD, FACS /nt
[~2017-03-09 10:50] MED LIST changes: +AMBIEN 10 MG TA10 MG PO; +COLACE 100 MG100 MG PO; +MAXZIDE-25 MG1 EACH PO; +OXYBUTYNIN 5 MG5 M1 PO; +PRINIVIL20 M1 PO
[2017-03-09 14:30] VITALS: BP 117/69
[2017-03-10 05:01] VITALS: BP 112/73
[2017-03-10 06:06] LABS: HEMOGLOBIN 12.5 gm/dL (12.0-15.0); MCH 27.1 pg (26.0-34.0); MCHC 33.8 g/dL (28.0-37.0); MCV 80.2 fL (80.0-100.0); RBC 4.62 mil/uL (4.20-5.00); RDW 14.3 % (10.5-14.5); WBC 12.3 thou/uL (4.0-11.0)
[2017-03-10 06:13] LABS: INR 1.2; PROTIME 12.1 Seconds (9.3-11.4)
[2017-03-10 06:20] LABS: CALCIUM 10.3 mg/dL (8.5-10.1); POTASSIUM 4.1 mmol/L (3.5-5.1)
[2017-03-10 16:00] VITALS: BP 93/52
[2017-03-11 05:06] VITALS: BP 105/55
[2017-03-11 07:23] LABS: INR 1.2; PROTIME 12.5 Seconds (9.3-11.4)
[2017-03-11 16:00] VITALS: BP 113/60
[2017-03-12 05:49] VITALS: BP 102/41
[2017-03-12 06:03] LABS: INR 1.2
[2017-03-12 16:00] VITALS: BP 113/54
[2017-03-13 03:39] VITALS: BP 117/48
[2017-03-13 06:23] LABS: INR 1.3; PROTIME 13.1 Seconds (9.3-11.4)
[2017-03-13 15:53] VITALS: BP 118/56
[2017-03-14 06:30] VITALS: BP 136/79
[2017-03-14 07:42] LABS: HEMATOCRIT 34.4 % (37.0-47.0); HEMOGLOBIN 11.5 gm/dL (12.0-15.0); MCHC 33.3 g/dL (28.0-37.0); PLATELET COUNT 392 thou/uL (150-400); RBC 4.25 mil/uL (4.20-5.00); RDW 14.4 % (10.5-14.5)
[2017-03-14 07:44] LABS: MANUAL DIFF YES
[2017-03-14 07:47] LABS: INR 1.3; PROTIME 13.7 Seconds (9.3-11.4)
[2017-03-14 07:50] LABS: CALCIUM 10.4 mg/dL (8.5-10.1); POTASSIUM 4.2 mmol/L (3.5-5.1)
[2017-03-14 08:16] LABS: ABSOLUTE NEUTROPHILS 7.6 thou/uL (1.4-8.2); METAMYELOCYTES 2 %; PLATELET ESTIMATE NORMAL; TOTAL CELL COUNT 100
[2017-03-14 16:00] VITALS: BP 107/49
[2017-03-15 03:40] VITALS: BP 118/59
[2017-03-15 05:02] LABS: INR 1.5; PROTIME 15.3 Seconds (9.3-11.4)
[2017-03-15 15:30] VITALS: BP 123/61
[2017-03-16 04:45] VITALS: BP 111/48
[2017-03-16 06:08] LABS: INR 1.7; PROTIME 17.4 Seconds (9.3-11.4)
[2017-03-16 16:35] VITALS: BP 111/52
[2017-03-17 04:24] VITALS: BP 127/73
[2017-03-17 06:10] LABS: PROTIME 19.9 Seconds (9.3-11.4)
[2017-03-17 16:00] VITALS: BP 143/63
[2017-03-17 16:10] VITALS: BP 119/69
[2017-03-18 05:53] VITALS: BP 117/59
[2017-03-18 06:11] LABS: INR 2.3; PROTIME 23.6 Seconds (9.3-11.4)
[2017-03-18] MEDS ORDERED: PROTONIX40 M1 PO (07:18)
[2017-03-18] MEDS ORDERED: VENTOLIN HFA 1818 GM INH (07:18)
[2017-03-18] MEDS ORDERED: PROBIOTIC1 EAC1 PO (07:18)
[2017-03-18] MEDS ORDERED: DUONEB 2.5-0.5 M3 ML INH (07:18)
[2017-03-18] MEDS ORDERED: ROCEPHIN 11 GM/1001 IV (07:20)
[2017-03-18 16:27] VITALS: BP 136/66
[2017-03-19 03:18] VITALS: BP 135/62
[2017-03-19 04:56] LABS: ABSOLUTE NEUTROPHILS 5.3 thou/uL (1.4-8.2); BASOPHILS 0.6 % (0.0-2.0); EOSINOPHILS 5.9 % (0.0-3.0); HEMATOCRIT 33.7 % (37.0-47.0); LYMPHOCYTES 16.5 % (24.0-44.0); MCH 26.5 pg (26.0-34.0); MCHC 32.6 g/dL (28.0-37.0); MCV 81.1 fL (80.0-100.0); MONOCYTES 11.7 % (1.0-8.0); PLATELET COUNT 419 thou/uL (150-400); POLYS 65.3 % (36.0-66.0); RBC 4.16 mil/uL (4.20-5.00); RDW 14.2 % (10.5-14.5); WBC 8.1 thou/uL (4.0-11.0)
[2017-03-19 04:57] LABS: MANUAL DIFF NO
[2017-03-19 05:03] LABS: CALCIUM 9.7 mg/dL (8.5-10.1); POTASSIUM 3.6 mmol/L (3.5-5.1)
[2017-03-19 05:12] LABS: INR 3.1; PROTIME 31.1 Seconds (9.3-11.4)
[2017-03-19 16:00] VITALS: BP 155/78
[2017-03-20 04:58] VITALS: BP 149/70
[2017-03-20 15:27] VITALS: BP 149/67
[2017-03-21 05:13] VITALS: BP 142/77
[2017-03-21 12:30] LABS: HEMATOCRIT 36.3 % (37.0-47.0); HEMOGLOBIN 11.6 gm/dL (12.0-15.0); MCH 25.9 pg (26.0-34.0); MCV 81.1 fL (80.0-100.0); PLATELET COUNT 394 thou/uL (150-400); RBC 4.48 mil/uL (4.20-5.00); RDW 14.1 % (10.5-14.5); WBC 9.5 thou/uL (4.0-11.0)
[2017-03-21 12:31] LABS: MANUAL DIFF YES
[2017-03-21 12:38] LABS: CALCIUM 9.2 mg/dL (8.5-10.1); CREATININE 0.6 mg/dL (0.6-1.0); POTASSIUM 3.6 mmol/L (3.5-5.1)
[2017-03-21 13:08] LABS: ABSOLUTE NEUTROPHILS 8.5 thou/uL (1.4-8.2); PLATELET ESTIMATE NORMAL; TOTAL CELL COUNT 100
== END 2017-03-21 15:51 | disposition short-term general hospital (02) | DRG 947 ==
PROVIDERS: Internal Medicine Endocrinology, Diabetes & Metabolism; Physical Medicine & Rehabilitation; Specialist
PROC: B548ZZA Ultrasonography of Superior Vena Cava, Guidance (ICD-10-PCS; 2017-03-09)
PROC: 02HV33Z Insertion of Infusion Device into Superior Vena Cava, Percutaneous Approach (ICD-10-PCS; 2017-03-09)
PROC: 0D9670Z Drainage of Stomach with Drainage Device, Via Natural or Artificial Opening (ICD-10-PCS; principal; 2017-03-21)
DX: R53.81 Other malaise (principal); J96.01 Acute respiratory failure with hypoxia; K56.60 Unspecified intestinal obstruction; L03.115 Cellulitis of right lower limb; Z96.651 Presence of right artificial knee joint; I48.91 Unspecified atrial fibrillation; I10 Essential (primary) hypertension; H54.8 Legal blindness, as defined in USA; K59.00 Constipation, unspecified; G47.33 Obstructive sleep apnea (adult) (pediatric); B95.1 Streptococcus, group B, as the cause of diseases classified elsewhere; G31.84 Mild cognitive impairment of uncertain or unknown etiology; J44.9 Chronic obstructive pulmonary disease, unspecified; Z86.718 Personal history of other venous thrombosis and embolism; Z86.711 Personal history of pulmonary embolism; Z90.710 Acquired absence of both cervix and uterus; Z90.11 Acquired absence of right breast and nipple; Z88.2 Allergy status to sulfonamides; Z88.5 Allergy status to narcotic agent; Z88.1 Allergy status to other antibiotic agents
CPT/HCPCS: 10112; 27000

== ENCOUNTER 2017-03-21 16:02 | Inpatient (IN) | payer OTHER, MEDICARE ==
[~2017-03-21] VITALS: Ht 165.1 cm; Wt 90.7 kg
--- NOTE | ~2017-03-21 | HC ---
[facility] [address] [place] [address] CONSULTATION Name: BLAKEMARLIN Bridgett Room #: 426-P [facility] IN ..#: [id number] Admission: 03/21/17 Attend Phys: Lyle Gonzalez MD Discharge: 03/24/17 Date of : [birth year] Report #: [id number] THIS REPORT FOR: //name// CC: Adolfo Gonzalez DATE OF SERVICE: 03/22/2017 ATTENDING PHYSICIAN: Dr. Lyle Gonzalez. REASON FOR CONSULTATION: Small-bowel obstruction. HISTORY OF PRESENT ILLNESS: This is an 86-year-old female patient who I initially saw in inpatient rehabilitation for a small-bowel obstruction. She had been admitted with infection of her right total knee arthroplasty, undergoing incision and drainage with transfer to rehabilitation. KUBs were suggestive of a small-bowel obstruction. The patient has been transferred to the acute setting for her small-bowel obstruction. At the time of her transfer, her nasogastric tube was dislodged and decision was made to leave the tube out. The patient denies significant abdominal pain this morning. She has passed flatus, and according to her nurse, small bowel movements. The patient reports repair of both rectocele and cystocele. She complains of difficulty with fecal impactions chronically. PAST MEDICAL HISTORY: Significant for COPD, DVT with pulmonary embolism, atrial fibrillation, hypertension, arthritis, obstructive sleep apnea with CPAP and legal blindness. PAST SURGICAL HISTORY: Hysterectomy, right mastectomy, right total knee arthroplasty, recent arthroscopic drainage of right total knee arthroplasty. MEDICATIONS: Please see the hospital chart for details. She is currently receiving warfarin, ceftriaxone, lactobacillus, acidophilus, HCTZ/triamterene, lisinopril, diltiazem CD, pantoprazole, oxybutynin, docusate, ipratropium, and p.r.n. medications. ALLERGIES: SULFA DRUGS cause lethargy and nausea; MORPHINE causes vomiting; AMOXICILLIN causes nausea. FAMILY HISTORY: Reviewed and noncontributory to this hospitalization. SOCIAL HISTORY: The patient denies use of tobacco, alcohol or illicit drugs. Prior to her hospitalization[facility] REVIEW OF SYSTEMS: As per history of present illness. [address] [address] CONSULTATION Name: MARLIN LOZANO Room #: 426-P [facility] IN [facility].#: [id number] Admission: 03/21/17 Attend Phys: Lyle Gonzalez MD Discharge: 03/24/17 Date of : [birth year] Report #: [id number] GENERAL: The patient denies unintentional weight loss. Denies fever or chills. HEENT: Denies changes in taste, vision, hearing, or smell. RESPIRATORY: Denies shortness of breath or asthma. Has a history of COPD and previous DVT/PE. CARDIOVASCULAR: Denies chest pain or palpitations. GASTROINTESTINAL: As per history of present illness. Denies bright red blood per rectum. Has difficulty with fecal impactions. Has never undergone colonoscopy. GENITOURINARY: Denies dysuria, urgency or increased urinary frequency. ENDOCRINE: Denies polydipsia, polyuria, heat or cold intolerance. HEMATOLOGIC: Denies easy bleeding, bruising or anemia. NEUROLOGIC: Denies headaches, numbness or tingling. PSYCHIATRIC: Denies depression, anxiety or suicidal ideations. SKIN AND INTEGUMENTARY: Denies any skin lesions, rashes, or moles. All other review of systems is negative. PHYSICAL EXAMINATION: VITAL SIGNS: Temperature 98.1, blood pressure 174/98, pulse 101, respirations 20, height 5 feet 5 inches and weight 200 pounds. GENERAL: This is an obese 86-year-old female patient in no acute distress. HEENT: Atraumatic, normocephalic with moist mucosal membranes. Oropharynx is clear. NECK: Supple, no appreciable lymphadenopathy. Trachea is midline. CHEST: Clear bilaterally. No crackles or wheezes. CARDIOVASCULAR: Regular rate and rhythm. ABDOMEN: Soft and slightly distended, but no tenderness to palpation. She has no appreciable hernias or palpable masses. RECTAL: No palpable masses, no appreciable stool in the rectal vault, no anal fissures and chronic external hemorrhage, nontender. GENITOURINARY: Normal external female genitalia. EXTREMITIES: No clubbing, cyanosis or edema. Her right knee dressing is intact. NEUROLOGIC: Cranial nerves 2-12 grossly intact. PSYCHIATRIC: Normal mood and affect. SKIN AND INTEGUMENTARY: No acute inflammatory changes, rashes or lesions are present. LABORATORY DATA: CBC from this morning shows white blood cell count 10.3, hemoglobin 11.7, hematocrit 35.3 and platelets 352. Electrolytes showed sodium of 139, potassium 3.4, chloride 102, CO2 23, BUN 9, creatinine 0.6 and glucose 60. INR today was 5.4. RADIOLOGIC STUDIES: KUB and upright from today is pending. IMPRESSION AND PLAN: This is an 86-year-old female patient with a history of [facility] [address] [address] CONSULTATION Name: MARLIN LOZANO Room #: 426-P [facility] IN M.R.#: [id number] Admission: 03/21/17 Attend Phys: Lyle Gonzalez MD Discharge: 03/24/17 Date of : [birth year] Report #: [id number] chronic obstructive pulmonary disease, deep vein thrombosis/pulmonary embolism, atrial fibrillation, hypertension, arthritis, and obstructive sleep apnea who has undergone recent arthroscopic drainage of a septic right knee, status post right total knee arthroplasty. She developed a small-bowel obstruction while admitted to inpatient rehabilitation and has been transferred to the acute hospital setting for further management of this. The patient feels better today. Her nasogastric tube was dislodged on transfer to inpatient rehabilitation and her bowels have been functional. Awaiting the KUB today. I discussed the pathophysiology and natural history of bowel obstructions as hers is likely secondary to adhesions from her previous operations. We discussed treatment alternatives and surgical options. It would appear that her bowel obstruction is clearing with recent bowel function. If her KUB shows improvement or resolution, her diet can be advanced. I will follow along with serial abdominal exams as well as labs and x-rays as necessary. I sincerely appreciate the opportunity to participate in the care of this patient and will leave further recommendations and orders in the electronic medical record as appropriate. <ELECTRONICALLY SIGNED> By: Maico Mena MD, FACS 03/24/17 2223 1050 1134 Maico Mena MD, FACS /nt
[~2017-03-21 16:02] MED LIST changes: +DUONEB 2.5-0.5 M3 ML INH; +PROBIOTIC1 EAC1 PO; +PROTONIX40 M1 PO; +ROCEPHIN 11 GM/1001 IV; +VENTOLIN HFA 1818 GM INH
[2017-03-21 16:15] VITALS: BP 159/93
[2017-03-21 21:00] VITALS: BP 171/84
[2017-03-22 04:28] VITALS: BP 163/87
[2017-03-22 06:32] LABS: BASOPHILS 1.2 % (0.0-2.0); EOSINOPHILS 2.2 % (0.0-3.0); HEMATOCRIT 35.3 % (37.0-47.0); HEMOGLOBIN 11.7 gm/dL (12.0-15.0); MCHC 33.1 g/dL (28.0-37.0); MCV 81.4 fL (80.0-100.0); MONOCYTES 7.9 % (1.0-8.0); PLATELET COUNT 352 thou/uL (150-400); POLYS 77.7 % (36.0-66.0); RBC 4.34 mil/uL (4.20-5.00); WBC 10.3 thou/uL (4.0-11.0)
[2017-03-22 06:34] LABS: MANUAL DIFF NO
[2017-03-22 06:41] LABS: CALCIUM 9.5 mg/dL (8.5-10.1); CREATININE 0.6 mg/dL (0.6-1.0); MAGNESIUM 1.8 mg/dL (1.8-2.4); POTASSIUM 3.4 mmol/L (3.5-5.1)
[2017-03-22 06:43] LABS: PROTIME 53.3 Seconds (9.3-11.4)
[2017-03-22 06:58] LABS: INR 5.4
[2017-03-22 08:08] VITALS: BP 174/98
[2017-03-22 08:29] LABS: ALBUMIN 2.8 g/dL (3.4-5.0); ALKALINE PHOSPHATASE 67 U/L (46-116); SGOT 23 U/L (15-37); SGPT 22 U/L (30-65); TOTAL BILIRUBIN 0.4 mg/dL (<0.1-1.0); TOTAL PROTEIN 6.7 g/dL (6.4-8.2)
[2017-03-22 08:41] LABS: DIRECT BILIRUBIN < 0.1 mg/dL (<0.1-0.3)
[2017-03-22 14:35] LABS: CALCIUM 9.4 mg/dL (8.5-10.1); CREATININE 0.7 mg/dL (0.6-1.0); POTASSIUM 3.4 mmol/L (3.5-5.1)
[2017-03-22 14:36] LABS: MAGNESIUM 1.6 mg/dL (1.8-2.4)
[2017-03-22 17:17] VITALS: BP 147/84
[2017-03-23 04:23] VITALS: BP 146/84
[2017-03-23 06:30] LABS: ABSOLUTE NEUTROPHILS 7.3 thou/uL (1.4-8.2); EOSINOPHILS 2.3 % (0.0-3.0); HEMATOCRIT 33.8 % (37.0-47.0); HEMOGLOBIN 11.2 gm/dL (12.0-15.0); LYMPHOCYTES 10.2 % (24.0-44.0); MANUAL DIFF NO; MCH 26.6 pg (26.0-34.0); MCV 80.7 fL (80.0-100.0); MONOCYTES 9.3 % (1.0-8.0); PLATELET COUNT 354 thou/uL (150-400); POLYS 77.2 % (36.0-66.0); RBC 4.19 mil/uL (4.20-5.00); RDW 14.3 % (10.5-14.5); WBC 9.5 thou/uL (4.0-11.0)
[2017-03-23 06:40] LABS: CALCIUM 9.4 mg/dL (8.5-10.1); CREATININE 0.6 mg/dL (0.6-1.0); MAGNESIUM 1.6 mg/dL (1.8-2.4); POTASSIUM 3.3 mmol/L (3.5-5.1); PROTIME 64.7 Seconds (9.3-11.4)
[2017-03-23 07:27] VITALS: BP 150/89
[2017-03-23 07:40] LABS: INR 6.5
[2017-03-23 15:00] VITALS: BP 152/70
[2017-03-23 20:21] VITALS: BP 159/89
[2017-03-24 04:43] VITALS: BP 155/80
[2017-03-24 06:47] LABS: PROTIME 28.8 Seconds (9.3-11.4)
[2017-03-24 06:51] LABS: MAGNESIUM 1.7 mg/dL (1.8-2.4); POTASSIUM 3.6 mmol/L (3.5-5.1)
[2017-03-24 07:03] LABS: INR 2.9
[2017-03-24 07:24] VITALS: BP 134/75
[2017-03-24] MEDS ORDERED: COUMADIN 4 MG TA4 M1 PO (10:50)
[2017-03-24 12:14] VITALS: BP 134/75
== END 2017-03-24 15:29 | disposition home health service (06) | DRG 871 ==
LOC: 4E 16:02
PROVIDERS: Internal Medicine; Nurse Practitioner
PROC: 02HV33Z Insertion of Infusion Device into Superior Vena Cava, Percutaneous Approach (ICD-10-PCS; principal; 2017-03-24)
DX: A41.9 Sepsis, unspecified organism (principal); J96.01 Acute respiratory failure with hypoxia; K56.60 Unspecified intestinal obstruction; L03.115 Cellulitis of right lower limb; J44.1 Chronic obstructive pulmonary disease with (acute) exacerbation; I48.91 Unspecified atrial fibrillation; R53.81 Other malaise; I10 Essential (primary) hypertension; Z96.651 Presence of right artificial knee joint; G47.33 Obstructive sleep apnea (adult) (pediatric); B95.1 Streptococcus, group B, as the cause of diseases classified elsewhere; H54.8 Legal blindness, as defined in USA; Z86.718 Personal history of other venous thrombosis and embolism; Z86.711 Personal history of pulmonary embolism; Z90.710 Acquired absence of both cervix and uterus; Z90.11 Acquired absence of right breast and nipple; Z88.2 Allergy status to sulfonamides; Z88.5 Allergy status to narcotic agent; Z88.1 Allergy status to other antibiotic agents
CPT/HCPCS: 10783

== ENCOUNTER → 2017-04-05 | Outpatient (CLI) | payer OTHER, MEDICARE | LOC: OPONC 12:19 | DX: T85.618A Breakdown (mechanical) of other specified internal prosthetic devices, implants and grafts, initial encounter (principal) ==

== ENCOUNTER → 2017-10-31 | Outpatient (CLI) | payer OTHER, MEDICARE ==
[~2017-10-31] MED LIST changes: +ZPAK PO
--- NOTE | ~2017-10-31 | 2DMMODE ---
[facility] [address] [place] [address] 2 D/M-MODE ECHOCARDIOGRAM Name: MARLIN LOZANO Room #: REG [facility]#: [id number] Admission: 10/31/17 Attend Phys: Kehinde Dhaliwal MD Discharge: Date of : [birth year] Date of Service: 10/31/17 1615 Report #: [id number] THIS REPORT FOR: //name// APPROVED REPORT Study performed: 10/31/2017 15:27:57 EXAM: Comprehensive 2D, Doppler, and color-flow Echocardiogram Patient Location: Out-Patient Room #: Echo lab Status: routine BSA: 1.98 HR: 88 bpm BP: 152/88 mmHg Other Information Study Quality: Fair Indications Atrial Fibrillation 2D Dimensions RVDd: 31.02 mm LVEF(%): 55.12 (>50%) IVSd: 13.89 (7-11mm) LVOT Diam: 19.19 (18-24mm) LVDd: 45.60 mm PWd: 12.53 (7-11mm) Ascending Ao: 35.97 (22-36mm) LVDs: 32.59 (25-40mm) Aortic Root: 29.37 mm IVC: 19.00 mm Johansen's LVEF: 55.12 % Volumes Left Atrial Volume (Systole) Single Plane 4CH: 77.35 mL Single Plane 2CH: 73.91 mL LA ESV Index: 42.00 mL/m2 Aortic Valve AoV Peak Oniel.: 1.20 m/s AO Peak Gr.: 5.73 mmHg LVOT Max P.67 mmHg LVOT Max V: 0.96 m/s SHERRI Vmax: 2.31 cm2 Pulmonary Valve PV Peak Oniel.: 0.67 m/s PV Peak Gr.: 1.81 mmHg Tricuspid Valve [facility] [place] [place] [address] 2 D/M-MODE ECHOCARDIOGRAM Name: MARLIN LOZANO Room #: REG [facility]#: [id number] Admission: 10/31/17 Attend Phys: Kehinde Dhaliwal MD Discharge: Date of : [birth year] Date of Service: 10/31/17 1615 Report #: [id number] Peak Oniel.: 2.48 m/s TR Peak Gr.: 24.63 mmHg PA Pressure: 30.00 mmHg Left Ventricle The left ventricle is normal size. Mild concentric left ventricular hypertrophy. The left ventricular systolic function is normal. The left ventricular ejection fraction is within the normal range. LVEF is 55-60%. This study is not technically sufficient to allow evaluation of the LV diastolic function due to atrial fibrillation. Right Ventricle The right ventricle is normal size. The right ventricular systolic function is normal. Atria Left atrium is severely dilated. Right atrium is severely dilated. Aortic Valve The aortic valve is normal in structure. No aortic regurgitation is present. There is no aortic valvular stenosis. Mitral Valve The mitral valve is normal in structure. Mild mitral regurgitation. No evidence of mitral valve stenosis. Tricuspid Valve The tricuspid valve is normal in structure. There is mild tricuspid regurgitation. Estimated PAP 30 mmHg. There is mild pulmonary hypertension. Pulmonic Valve The pulmonary valve is normal in structure. There is no pulmonic valvular regurgitation. Great Vessels The aortic root is normal in size. IVC is normal in size and collapses >50% with inspiration. Pericardium There is no pericardial effusion. <Conclusion> The left ventricle is normal size. [facility] [address] [place] [address] 2 D/M-MODE ECHOCARDIOGRAM Name: MARLIN LOZANO Bridgett Room #: REG [facility]#: [id number] Admission: 10/31/17 Attend Phys: Kehinde Dhaliwal MD Discharge: Date of : [birth year] Date of Service: 10/31/171614 Report #: [id number] Mild concentric left ventricular hypertrophy. The left ventricular systolic function is normal. The right ventricle is normal size. Left atrium is severely dilated. Right atrium is severely dilated. There is no aortic valvular stenosis. Mild mitral regurgitation. There is mild tricuspid regurgitation. Estimated PAP 30 mmHg. <ELECTRONICALLY SIGNED> By: Kehinde Dhaliwal MD 10/31/175 14 14 Kehinde Dhaliwal MD /INF
== END ==
LOC: CV 10-24 07:37
DX: I08.1 Rheumatic disorders of both mitral and tricuspid valves (principal); I25.10 Atherosclerotic heart disease of native coronary artery without angina pectoris; I48.91 Unspecified atrial fibrillation

== ENCOUNTER → 2018-11-27 | Outpatient (CLI) | payer OTHER, MEDICARE ==
--- NOTE | 2018-11-27 15:14 | 2DMMODE ---
[facility] [place] [address] 2 D/M-MODE ECHOCARDIOGRAM Name: MARLIN LOZANO Room #: REG [facility]#: [id number] ������������� Admission: 11/27/18 ������������� Attend Phys: Kehinde Dhaliwal MD Discharge: ��� ������������� ��� Date of : [birth year] Date of Service: 11/27/18 1513 �� Report #: [id number] �������� ��������������������������������������������[id number] THIS REPORT FOR: //name// APPROVED REPORT Study performed: 11/27/2018 14:19:18 EXAM: Comprehensive 2D, Doppler, and color-flow Echocardiogram Patient Location: Echo lab Status: routine BSA: 1.94 HR: 79 bpm BP: 130/80 mmHg Other Information Study Quality: Adequate Indications Atrial Fibrillation Hypertension/HDD 2D Dimensions RVDd: 30.71 mm IVSd: 11.47 (7-11mm) LVOT Diam: 20.05 (18-24mm) LVDd: 48.16 mm PWd: 12.02 (7-11mm) Ascending Ao: 31.24 (22-36mm) LVDs: 35.69 (25-40mm) Aortic Root: 30.87 mm IVC: 19.00 mm Volumes Left Atrial Volume (Systole) Single Plane 4CH: 79.42 mL Single Plane 2CH: 69.08 mL LA ESV Index: 40.00 mL/m2 Aortic Valve AoV Peak Oniel.: 1.59 m/s AO Peak Gr.: 10.18 mmHg LVOT Max P.77 mmHg LVOT Max V: 0.97 m/s SHERRI Vmax: 1.92 cm2 Mitral Valve MV Decel. Time: 189.74 ms MV E Max Oniel.: 1.08 m/s IVRT: 46.14 ms [facility] [place] [address] [place] [address] 2 D/M-MODE ECHOCARDIOGRAM Name: MARLIN LOZANO Room #: REG [facility]#: [id number] ������������� Admission: 11/27/18 ������������� Attend Phys: Kehinde Dhaliwal MD Discharge: ��� ������������� ��� Date of : [birth year] Date of Service: 11/27/18 1513 �� Report #: [id number] �������� ��������������������������������������������[id number] Pulmonary Valve PV Peak Oniel.: 0.72 m/s PV Peak Gr.: 2.08 mmHg Tricuspid Valve TR Peak Oniel.: 2.72 m/s RAP Estimate: 5.00 mmHg TR Peak Gr.: 29.59 mmHg PA Pressure: 35.00 mmHg Left Ventricle The left ventricle is normal size. There is normal left ventricular wall thickness. The left ventricular systolic function is normal. The left ventricular ejection fraction is within the normal range. LVEF is 60-65%. This study is not technically sufficient to allow evaluation of the LV diastolic function due to atrial fibrillation. Right Ventricle The right ventricle is normal size. The right ventricular systolic function is normal. Atria Left atrium is moderately to severely dilated. Right atrium is severely dilated. Aortic Valve The aortic valve is normal in structure. No aortic regurgitation is present. There is no aortic valvular stenosis. Mitral Valve The mitral valve is normal in structure. Mild mitral regurgitation. No evidence of mitral valve stenosis. Tricuspid Valve The tricuspid valve is normal in structure. Trace to mild tricuspid regurgitation. PAP is estimated at 35 mmHg. Pulmonic Valve Pulmonic valve is not well visualized. There is no pulmonic valvular regurgitation. Great Vessels The aortic root is normal in size. IVC is normal in size and collapses >50% with inspiration. Pericardium [facility] [address] [place] [address] 2 D/M-MODE ECHOCARDIOGRAM Name: MARLIN LOZANO Room #: REG [facility]#: [id number] ������������� Admission: 11/27/18 ������������� Attend Phys: Kehinde Dhaliwal MD Discharge: ��� ������������� ��� Date of : [birth year] Date of Service: 11/27/18 1513 �� Report #: [id number] �������� ��������������������������������������������[id number] There is no pericardial effusion. <Conclusion> The left ventricle is normal size. There is normal left ventricular wall thickness. The left ventricular systolic function is normal. The right ventricle is normal size. Left atrium is moderately to severely dilated. Right atrium is severely dilated. The aortic valve is normal in structure. Mild mitral regurgitation. Trace to mild tricuspid regurgitation. PAP is estimated at 35 mmHg. ��������������������������������������������� <ELECTRONICALLY SIGNED> ���������������������������������������� By: Kehinde Dhaliwal MD ��������������������������������������������� [id number] 12 12 Kehinde Dhaliwal MD /LIZANDRO
== END ==
LOC: CV 11:43
DX: I08.1 Rheumatic disorders of both mitral and tricuspid valves (principal); I48.91 Unspecified atrial fibrillation; I25.10 Atherosclerotic heart disease of native coronary artery without angina pectoris; Z88.2 Allergy status to sulfonamides; Z88.5 Allergy status to narcotic agent; Z91.09 Other allergy status, other than to drugs and biological substances

== ENCOUNTER 2019-03-25 10:58 | Emergency (ER) | payer OTHER, MEDICARE ==
[~2019-03-25] VITALS: Ht 162.6 cm; Wt 90.7 kg
[2019-03-25] MEDS ORDERED: KEFLEX500 M1 PO (11:25)
[2019-03-25] MEDS ORDERED: COUMADIN 5 MG TA5 M1 PO (11:25)
[2019-03-25] MEDS ORDERED: PREDNISOLONE ACE5 ML OPHTHALMIC (11:29)
[2019-03-25 11:51] LABS: ABSOLUTE NEUTROPHILS 4.2 thou/uL (1.4-8.2); BASOPHILS 2.2 % (0.0-2.0); HEMATOCRIT 43.7 % (37.0-47.0); HEMOGLOBIN 14.8 gm/dL (12.0-15.0); LYMPHOCYTES 18.7 % (24.0-44.0); MCH 26.5 pg (26.0-34.0); MCHC 33.8 g/dL (28.0-37.0); MCV 78.6 fL (80.0-100.0); MONOCYTES 9.5 % (1.0-8.0); PLATELET COUNT 275 thou/uL (150-400); POLYS 59.6 % (36.0-66.0); RBC 5.57 mil/uL (4.20-5.00); RDW 14.5 % (10.5-14.5); URINE BILIRUBIN NEGATIVE (Negative); URINE BLOOD 1+ (Negative); URINE CLARITY CLEAR; URINE COLOR YELLOW; URINE GLUCOSE-RANDOM* NEGATIVE (Negative); URINE KETONES NEGATIVE (Negative); URINE LEUKOCYTES-REFLEX NEGATIVE (Negative); URINE NITRITE-REFLEX NEGATIVE (Negative); URINE PROTEIN (DIPSTICK) NEGATIVE (Negative); URINE UROBILINOGEN 0.2 E.U./dl (0.2-1.0); WBC 7.1 thou/uL (4.0-11.0)
[2019-03-25 11:53] LABS: CALCIUM 10.4 mg/dL (8.5-10.1); CREATININE 0.9 mg/dL (0.6-1.0); POTASSIUM 3.4 mmol/L (3.5-5.1)
[2019-03-25 12:02] LABS: CASTS None Seen /LPF (None Seen); SQUAMOUS 0-3 Few /LPF (0-3)
[2019-03-25 12:03] LABS: BACTERIA-REFLEX None Seen /HPF (None Seen); CRYSTALS None Seen /LPF (None Seen); URINE RBC 0-2 Rare /HPF (0-2); URINE WBC-REFLEX 0-5 Rare /HPF (0-5)
[2019-03-25 13:04] VITALS: BP 156/76
== END 2019-03-25 13:04 | disposition home or self-care (01) ==
LOC: ER 10:58
PROVIDERS: Nurse Practitioner Family
DX: B37.2 Candidiasis of skin and nail (principal); K59.00 Constipation, unspecified; I48.91 Unspecified atrial fibrillation; I10 Essential (primary) hypertension; M17.0 Bilateral primary osteoarthritis of knee; Z86.711 Personal history of pulmonary embolism; Z86.718 Personal history of other venous thrombosis and embolism; Z90.710 Acquired absence of both cervix and uterus; Z90.11 Acquired absence of right breast and nipple; Z90.89 Acquired absence of other organs; Z96.651 Presence of right artificial knee joint; Z98.890 Other specified postprocedural states; Z98.49 Cataract extraction status, unspecified eye; Z88.5 Allergy status to narcotic agent; Z88.2 Allergy status to sulfonamides; Z88.8 Allergy status to other drugs, medicaments and biological substances; Z87.891 Personal history of nicotine dependence

== ENCOUNTER 2019-05-07 14:44 | Inpatient (IN) | payer OTHER, MEDICARE ==
[~2019-05-07] VITALS: Ht 160 cm; Wt 85.7 kg
[~2019-05-07 14:44] MED LIST changes: +COUMADIN 5 MG TA5 M1 PO; +KEFLEX500 M1 PO; -LATANOPROST 0.2.5 ML; +LATANOPROST 0.2.5 ML OPHTHALMIC; +PREDNISOLONE ACE5 ML OPHTHALMIC
[2019-05-07 14:48] VITALS: BP 150/83
[2019-05-07 16:23] LABS: INR 2.8; PROTIME 28.9 Seconds (9.3-11.4)
[2019-05-07 16:27] LABS: ABSOLUTE NEUTROPHILS 12.9 thou/uL (1.4-8.2); BASOPHILS 0.4 % (0.0-2.0); HEMATOCRIT 44.4 % (37.0-47.0); HEMOGLOBIN 14.5 gm/dL (12.0-15.0); LYMPHOCYTES 4.5 % (24.0-44.0); MCHC 32.6 g/dL (28.0-37.0); MCV 79.8 fL (80.0-100.0); MONOCYTES 9.2 % (1.0-8.0); PLATELET COUNT 203 thou/uL (150-400); POLYS 85.9 % (36.0-66.0); RBC 5.56 mil/uL (4.20-5.00); RDW 15.1 % (10.5-14.5); WBC 15.1 thou/uL (4.0-11.0)
[2019-05-07 16:32] LABS: CALCIUM 10.5 mg/dL (8.5-10.1); CREATININE 0.9 mg/dL (0.6-1.0); POTASSIUM 3.4 mmol/L (3.5-5.1)
[2019-05-07 17:13] LABS: URINE BLOOD 3+ (Negative); URINE CLARITY SL CLOUDY; URINE COLOR YELLOW; URINE GLUCOSE-RANDOM* NEGATIVE (Negative); URINE KETONES TRACE (Negative); URINE LEUKOCYTES-REFLEX NEGATIVE (Negative); URINE NITRITE-REFLEX NEGATIVE (Negative); URINE PROTEIN (DIPSTICK) 2+ (Negative); URINE SPECIFIC GRAVITY >= 1.030 (1.005-1.035); URINE UROBILINOGEN 0.2 E.U./dl (0.2-1.0)
[2019-05-07 17:18] LABS: ICTOTEST (BILI CONFIRMATORY) Negative (Negative); URINE BILIRUBIN NEGATIVE (Negative)
[2019-05-07 17:27] LABS: CASTS None Seen /LPF (None Seen); SQUAMOUS 0-3 Few /LPF (0-3)
[2019-05-07 17:28] LABS: AMORPHOUS URATES Moderate /LPF (None Seen); BACTERIA-REFLEX None Seen /HPF (None Seen); URINE RBC 3-10 Few /HPF (0-2); URINE WBC-REFLEX 6-15 Few /HPF (0-5)
[2019-05-07] MEDS ORDERED: COUMADIN 2.5MG2.5 M1 PO (18:00)
[2019-05-07 18:10] VITALS: BP 147/83
--- NOTE | 2019-05-07 18:41 | NUR ---
ATTEMPTED TO CALL REPORT, NURSE STATES SHIFT CHANGE AND WILL CALL BACK
[2019-05-07 18:52] VITALS: BP 135/76
[2019-05-07 19:54] VITALS: BP 157/99
[2019-05-07] MEDS ORDERED: COLACE100 MG PO (20:14)
[2019-05-07] MEDS ORDERED: MAGNESIUM CITR296 ML PO (20:16)
--- NOTE | 2019-05-07 20:16 | NUR ---
RECEIVED REPORT FROM ED RNHAL AT 1845 AND GAVE REPORT TO 3W RNALEXSANDRA AT 1855. PATIENT HAD NOT YET ARRIVED ON 3W UNIT.
[2019-05-08 00:08] VITALS: BP 141/66
[2019-05-08 03:50] VITALS: BP 145/85
[2019-05-08 05:14] LABS: HEMATOCRIT 40.9 % (37.0-47.0); HEMOGLOBIN 13.3 gm/dL (12.0-15.0); MCH 26.2 pg (26.0-34.0); MCHC 32.6 g/dL (28.0-37.0); MCV 80.5 fL (80.0-100.0); RBC 5.08 mil/uL (4.20-5.00); WBC 12.1 thou/uL (4.0-11.0)
[2019-05-08 05:22] LABS: CALCIUM 9.7 mg/dL (8.5-10.1); CREATININE 0.7 mg/dL (0.6-1.0); POTASSIUM 3.4 mmol/L (3.5-5.1)
--- NOTE | 2019-05-08 06:00 | NUR ---
Pt. arrived from ER after shift change. C/O right rib cage/ chest pain which is intermittent per pt. and worst with movement.Per pt. this pain is not new and she had this pain at home which she decribed as a pulling kind of pain. Hydrocodone given with good relief.Denies right hip pain since arrival from ER. She slept well during the night. Chronic a fib with controlled rate. Tele dc'd per order. Afebrile. Pt. wears brief for incontinence. She stated she is not always aware of incontinence. Up with assist to commode x1. Bed alarm on for safety. She is blind and LIME. Able to use call light to communicate needs. Pt. lives at home by herself with caregiver that comes in on certain days per son. Updated med list but one of the sons will bring complete med list sometime today. Another son who is DPOA stated she is DNR and has a copy of advance directive here from previous visit. Another son will bring her CPAP from home today. Pt. had a flu shot last week and was given at the back of left upper arm that now looks like a scab/abrasion. Abebe verbalized it is not from fall but from flu shot injection. Will continue to monitor. Photo taken and placed in chart.
[2019-05-08 08:30] VITALS: BP 144/89
[2019-05-08 11:55] VITALS: BP 151/85
--- NOTE | 2019-05-08 13:09 | NUR ---
ASSUMED CARE. REPORT FROM MADELINE ADAMS, WHO HAD TO LEAVE. ASSISTED WITH LUNCH TRAY. KIMBERLY ADMIN ORDERED. WILL CONTINUE TO FOLLOW CLOSELY.
--- NOTE | 2019-05-08 14:07 | EKG ---
[address] [address] ELECTROCARDIOGRAM REPORT Name: MARLIN LOZANO Room #: 360-[facility] IN [facility].#: [id number] Admission: 05/07/19 Attend Phys: Franki Freitas MD Discharge: Date of : [birth year] Report #: [id number] THIS REPORT FOR: //name// [facility] ED Test Date: 2019-05-07 Test Time: 15:18:11 Pat Name: MARLIN LOZANO Department: Room: [facility] Gender: F Elevator Builder: ZULMA : 1930 Requested By: Brandon Almanzar Order Number: [id number] MD: Ever Pratt Measurements Intervals [place] Rate: 109 P: [place]: QRS: 31 QRSD: 78 T: 1 QT: 312 QTc: 421 Interpretive Statements Atrial fibrillation Compared to ECG 12/04/2017 13:26:30 Electronically Signed On 05-08-2019 14:07:14 CDT by Ever Pratt [email or web address] <ELECTRONICALLY SIGNED> By: Ever Pratt MD 05/08/19 1407 1518 151 Ever Pratt MD /JILL
--- NOTE | 2019-05-08 14:30 | NUR ---
ASSESSMENT: CM REVIEWED CHART AND MET WITH PATIENT AT THE BEDSIDE ALONG WITH HER SON. PT REPORTS SHE LIVES IN A HOUSE ALONE. PT HAS NO STEPS TO ENTER AND ALL HER NEEDS ARE ON ONE LEVEL. PT REPORTS USING A 4WW FOR AMBULATION. PT REPORTS HAVING A GRAB BAR AND SHOWER CHAIR. PT STATES SHE HAS THREE WOMEN WHO COME OVER 3X/WEEK ABOUT 4 HOURS AT A TIME WHO HELP HER WITH ADLS AND CHORES IF NEEDED. THIS IS THROUGH A PRIVATE PAY AGENCY HER SON STATES ([facility]). PT HAS BEEN TO 5N IN THE PAST AND HAD CHCS. CM DISCUSSED ROLE. PT/OT RECOMMENDING POST ACUTE CARE. PT STATES SHE HAS NOT BEEN TO A SNF BUT WOULD CONSIDER IT. CM PROVIDED PATIENT AND HER SON A SNF LIST AND THEY ARE TO REVIEW AND NOTIFY CM OF SOME OPTIONS SO REFERRALS CAN BE SENT. CM WILL CONTINUE TO FOLLOW TO ASSIST NEEDED.
[2019-05-08 15:20] VITALS: BP 138/73
--- NOTE | 2019-05-08 16:06 | NUR ---
PT ASSISTED TO COMMODE AT THE BEGINNING OF MY SHIFT, MOVEMENT WAS SLOW AND PT COMPLAINED OF PAIN UPON AMBULATION, HOWEVER STATES PAIN DECREASED WHEN SHE WAS IMMOBILE. CHANGED BRIEF. PT AMBULATED BACK TO BED. ZMT OPERATOR STRENGTH WAS MODERATE TO WEAK THROUGHOUT THE DAY. RT AMBULATED PT TO CHAIR, PT REMAINED IN CHAIR FOR 3.5 HOURS, DID WELL, NO NEW SYMPTOMS. AMBULATED PATIENT BACK TO BED, PAIN UPON AMBULATION AND PAIN STAYED CONSISTENT. DID A HEAD TO TOE ASSESSMENT WELL A PAIN ASSESSMENT, PT RATED PAIN AT A 9, MEDICATION GIVEN, REASSESSMENT OF PAIN WILL BE DONE BY PRECEPTOR. PT RESTING AT END OF SHIFT VITAL SIGNS ARE NORMAL
--- NOTE | 2019-05-08 16:13 | NUR ---
I have reviewed the student's documentation.
[2019-05-08 19:21] VITALS: BP 124/71
[2019-05-09] VITALS (10 sets, daily range): BP systolic 112–152; BP diastolic 60–90
--- NOTE | 2019-05-09 03:33 | NUR ---
ASSUMED CARE AT 1900. PT'S PRIMARY COMPLAINT IS PAIN IN HER RIGHT RIBS AND BUTTOCK; RIB PAIN IS SIGNIFICANTLY WORSE WITH ANY MOVEMENT. OBTAINED ORDER FOR HEATING PAD FOR RIBS, WHICH PT REPORTS HELPING SOME; SHE HAS ALSO ASKED FOR HER NORCO REGULARLY OVERNIGHT. DENIES NAUSEA OR SOB. PLACED ON CPAP W/ O2 BLED IN AND CONT PULSE OX OVERNIGHT; AFTER A FEW HOURS, PT TOOK MASK OFF AND FELL BACK ASLEEP, SATS DROPPED TO 88-90% ON RA; EXPLAINED THIS TO PT AND PLACED BACK ON CPAP. NO OTHER CONCERNS, WILL CONTINUE TO MONITOR.
--- NOTE | 2019-05-09 08:16 | NUR ---
PATIENT COMPLAINT OF CHEST PAIN. PHYSICIAN NOTIFIED. OXYGEN PER 2L NASAL CANNULA PLACED. SHE SHOWED RN THAT PAIN WAS ON HER RIGHT FLANK/CHEST. SHE SAID IT IS A PRESSURE IN HER RIGHT CHEST. SHE EXPRESSED SHE FELT LIKE SHE COULDN'T BREATHE. EKG PERFORMED. PHYSICIAN NOTIFIED AGAIN FOR FURTHER ORDERS. RAPID RESPONSE CALLED AND SHE ROUNDED. RESPIRATORY ROUNDED.
--- NOTE | 2019-05-09 08:36 | NUR ---
DR. VALLES CALLED WITH EKG RESULTS AND UPDATE ON PATIENT STATUS. NITRO SL GIVEN X1 PER DR. VALLES. STAT LABS ORDERED. HE IS ON HIS WAY UP TO ROUND ON HER.
[2019-05-09 10:03] LABS: HEMATOCRIT 43.6 % (37.0-47.0); HEMOGLOBIN 14.2 gm/dL (12.0-15.0); MCH 26.5 pg (26.0-34.0); MCHC 32.7 g/dL (28.0-37.0); MCV 80.9 fL (80.0-100.0); RBC 5.38 mil/uL (4.20-5.00); RDW 14.9 % (10.5-14.5); WBC 8.2 thou/uL (4.0-11.0)
[2019-05-09 10:11] LABS: ANION GAP 9 mmol/L (7-16); BUN 16 mg/dL (7-18); CALCIUM 9.9 mg/dL (8.5-10.1); CHLORIDE 103 mmol/L (98-107); CO2 27 mmol/L (21-32); CREATININE 0.8 mg/dL (0.6-1.0); GLUCOSE 133 mg/dL (74-106); POTASSIUM 3.6 mmol/L (3.5-5.1); SODIUM 139 mmol/L (136-145)
[2019-05-09 10:20] LABS: TROPONIN-I <0.06 ng/mL (<0.06)
--- NOTE | 2019-05-09 11:43 | NUR ---
DP faxed SNF referral to [facility], ready to dc tomorrow. DP will let [facility] know to expect faxed referral.
--- NOTE | 2019-05-09 15:44 | NUR ---
KELLI reviewed chart and spoke with nursing and attending physician. Pt is progressing towards goals for discharge. Received call from pt's son, Maximiliano, requesting referral to be sent to [facility]. naval surface fire support planner faxed referral. [facility], who confirms they are able to accept pt when medically stable. KELLI met with pt at bedside to provide update. Pt is agreeable. KELLI spoke with pt's son, Maximiliano, via phone to provide update. Maximiliano is agreeable with pt going to [facility], but is asking for a N consult. Pt has been to in the past. KELLI explained admission criteria for . Pt's son verbalized understanding and would like a consult if pt might qualify. KELLI discussed with vocational rehabilitation teacher. Awaiting input from . KELLI is following to assist as needed with discharge planning.
--- NOTE | 2019-05-09 15:56 | NUR ---
PATIENT EXPRESSED THAT THE PAIN COMES AND GOES, HOWEVER IT IS RELIEVED BY ORAL PAIN MEDICATION. SHE EXPRESSED HER PAIN IS ON HER RIGHT FLANK AND HAS BEEN THERE SINCE HER FALL. NURSE TOOK PATIENT TO OPTHAMOLOGY APPOINTMENT AND THE RECOMMENDATIONS WERE NOTED TO DR. VALLES. PHYSICIANS RECOMMENDATIONS AND PICTURES OF HER EYES ARE IN THE CHART. SHE TOLERATED TIME OFF UNIT WELL. NURSE TO CONTINUE TO MONITOR PATIENT STATUS.
--- NOTE | 2019-05-09 15:59 | NUR ---
PATIENT WAS OFF UNIT TO OPTHAMOLOGY APPOINTMENT PER ORDER BY DR. VALLES FROM 1310 UNTIL AROUND 1335. SHE WAS MONITORED DURING TIME OFF UNIT BY RN.
[2019-05-10 03:36] VITALS: BP 143/72
--- NOTE | 2019-05-10 03:53 | NUR ---
Patient making progress towards outcome goals. Vital signs and rhythm stable. High fall risks, fall precautions in place. Uses call light appropriately for needs. Good sats with 2L/NC and tolerating CPAP while sleeping. More comfortable in chair. Hydrocodone and Fentanyl given for breakthrough pain with relief.
--- NOTE | 2019-05-10 05:31 | NUR ---
Passing gas but no results yet from [facility].
[2019-05-10 06:01] LABS: INR 2.3; PROTIME 23.9 Seconds (9.3-11.4)
[2019-05-10 08:23] VITALS: BP 137/51
[2019-05-10 08:48] VITALS: BP 137/51
[2019-05-10] MEDS ORDERED: CEFUROXIME250 MG PO (12:36)
--- NOTE | 2019-05-10 12:50 | EKG ---
[address] [address] ELECTROCARDIOGRAM REPORT Name: MARLIN LOZANO Room #: 360- ADM IN ..#: [id number] Admission: 05/07/19 Attend Phys: Franki Freitas MD Discharge: Date of : [birth year] Report #: [id number] THIS REPORT FOR: //name// [facility] Test Date: 2019-05-09 Test Time: 07:45:13 Pat Name: MARLIN LOZANO Department: Room: 360 Gender: F Trolley Collector: ROBYN : 1930 Requested By: Troy Caceres Order Number: [id number] MD: Ever Pratt Measurements Intervals [place] Rate: 67 P: [place]: QRS: 34 QRSD: 82 T: -2 QT: 413 QTc: 436 Interpretive Statements Atrial fibrillation Low voltage, extremity and precordial leads Probable anteroseptal infarct, old Compared to ECG 05/07/2019 15:18:11 Low QRS voltage now present Myocardial infarct finding now present Electronically Signed On 05-10-2019 12:50:08 CDT by Ever Pratt [email or web address] <ELECTRONICALLY SIGNED> By: Ever Pratt MD 05/10/19 1250 0745 0745 Ever Pratt MD /EPI
--- NOTE | 2019-05-10 14:42 | NUR ---
ON-GOING ASSESSMENT: CAROLE REVIEWED CHART AND SPOKE WITH PATIENT AND HER SON GRUPO AT THE BEDSIDE. 5N EVALUATED PATIENT HER OTHER SON/DPOA JOHN REQUESTED AND THEY CAN ACCEPT PT FOR ADMISSIONS. CM DISCUSSED PT HAS A CHOICE TO GO TO SNF OR 5N. PT REPORTS SHE IS AGREEABLE TO GO TO 5N. CAROLE SPOKE WITH 5N LIASON WHO STATES N HAS ACCEPTED PT BUT CT WAS ORDERED PRIOR TO PT GOING UPSTAIRS. PT STATES SHE IS AGREEABLE TO GO TO 5N. CM NOTIFIED ATTENDING THAT CAN ACCEPT PT FOR ADMISSION.
--- NOTE | 2019-05-10 17:00 | NUR ---
PATIENT TRANSFERED TO REHAB VIA WHEELCHAIR WITH HER HEARING AIDES, DENTURES, RADIO CLOCK, MUSIC BOX, JEWLRY, AND CLOTHES. RESULTS OF CT SCAN WERE RELAYED TO PATIENT BY CRYSTAL SYRUP MAKER AND INFORMED TO PATIENTS SON BY RN. THEY EXPRESSED THEY UNDERSTOOD. SHE TOLERATED TRANSFER TO REHAB..
== END 2019-05-10 16:46 | DRG 871 ==
LOC: ER 14:44 → 3W 18:14 → EROBS 18:14 → 3W 18:57
PROVIDERS: Emergency Medicine; Internal Medicine; ADMIT Hospitalist
PROC: 5A09357 Assistance with Respiratory Ventilation, Less than 24 Consecutive Hours, Continuous Positive Airway Pressure (ICD-10-PCS; principal; 2019-05-08)
PROC: 5A09357 Assistance with Respiratory Ventilation, Less than 24 Consecutive Hours, Continuous Positive Airway Pressure (ICD-10-PCS; 2019-05-10)
DX: A41.9 Sepsis, unspecified organism (principal); G92 Toxic encephalopathy; S32.591A Other specified fracture of right pubis, initial encounter for closed fracture; N30.00 Acute cystitis without hematuria; S70.01XA Contusion of right hip, initial encounter; I10 Essential (primary) hypertension; E87.6 Hypokalemia; M17.0 Bilateral primary osteoarthritis of knee; Z60.2 Problems related to living alone; I48.91 Unspecified atrial fibrillation; F03.90 Unspecified dementia, unspecified severity, without behavioral disturbance, psychotic disturbance, mood disturbance, and anxiety; H54.61 Unqualified visual loss, right eye, normal vision left eye; M19.90 Unspecified osteoarthritis, unspecified site; H05.231 Hemorrhage of right orbit; Z90.710 Acquired absence of both cervix and uterus; Z90.11 Acquired absence of right breast and nipple; Z86.718 Personal history of other venous thrombosis and embolism; Z86.711 Personal history of pulmonary embolism; Z88.6 Allergy status to analgesic agent; Z88.2 Allergy status to sulfonamides; Z87.891 Personal history of nicotine dependence; Z79.01 Long term (current) use of anticoagulants; W18.39XA Other fall on same level, initial encounter; Y93.89 Activity, other specified; Y92.098 Other place in other non-institutional residence as the place of occurrence of the external cause; Y99.8 Other external cause status
CPT/HCPCS: 10080; 10879

== ENCOUNTER 2019-05-10 13:38 | Inpatient (IN) | payer OTHER, MEDICARE ==
[~2019-05-10] VITALS: Ht 160 cm; Wt 85.7 kg
[~2019-05-10 13:38] MED LIST changes: +CEFUROXIME250 MG PO; +COLACE100 MG PO; +COUMADIN 2.5MG2.5 M1 PO; +MAGNESIUM CITR296 ML PO
--- NOTE | 2019-05-10 18:43 | NUR ---
GIVEN REPORT FROM PREVIOUS NURSE AT APPROXIMATELY 1515. PT BROUGHT TO UNIT AT 1630. PT IS A&OX4 AND FORGETFUL, VITAL SIGNS ARE STABLE. ADMISSION ASSESSMENT COMPLETED, PT GIVEN ADMISSION EDUCATION, ADMISSION FORMS SIGNED, VITAL SIGNS, WEIGHT OBTAINED. PT ORIENTED TO UNIT. PT REPORTS THAT SHE PREFERS TO SLEEP IN RECLINER. FALL PRECAUTIONS IN PLACE AND NURSING WILL CONTINUE TO MONITOR.
[2019-05-10 20:10] VITALS: BP 123/64
--- NOTE | 2019-05-10 23:38 | NUR ---
PT ASSESSMENT DONE AND VSS. MED GIVEN AND WELL TOLERATED. FALL PRECAUTIONS IN PLACE. SLEEPING IN RECLINER OVERNIGHT. BIPAP ON AT HS. WILL CONTINUE TO MONITOR.
[2019-05-11 05:56] LABS: HEMATOCRIT 42.7 % (37.0-47.0); HEMOGLOBIN 13.7 gm/dL (12.0-15.0); MCH 26.1 pg (26.0-34.0); MCV 81.5 fL (80.0-100.0); RBC 5.24 mil/uL (4.20-5.00); RDW 14.9 % (10.5-14.5)
[2019-05-11 06:05] LABS: CALCIUM 9.7 mg/dL (8.5-10.1); CREATININE 0.6 mg/dL (0.6-1.0); POTASSIUM 3.8 mmol/L (3.5-5.1)
[2019-05-11 09:46] VITALS: BP 149/75
--- NOTE | 2019-05-11 10:20 | NUR ---
chart review, pt in room cont to work with physical therapy. intro to cm, transition of care, hh and team meeting. pt preferrs going by pat, she able to make her needs know. pat reported " live home alone, no steps to enter home and no stairs inside. have private cg few times week to help with chores from elder care. 4 ww, grab bars, shower care."/pat. will cont following as needed for dc needs. " i cant see you well but thank you i can hear you"/pat. noted right ear hearing aid.
--- NOTE | 2019-05-11 13:17 | NUR ---
ASSUMED CARES AT 0700. PT AWAKE, ALERT AND ORIENTED*4. C/O RIGHT NON-CARDIAC CHEST PAIN AND ROBERT SHOULDER PAIN, HYDROCODONE ADMINISTERED NEEDED. VITALS REMAIN STABLE. ABDOMEN SOFT AND ROUND, HYPERACTIVE BS, MULTIPLE LOOSE STOOLS TODAY (ENEMA ADMINISTERED YESTERDAY). LS CLEAR, DIMINISHED IN THE BASES, ON RA WITH SATS >95%. CONTINUES TO HAVE BLE EDEMA, EXTREMITIES ELEVATED. UP WITH 1 MIN ASSIST, PROVIDING CUES R/T PT LEGALLY BLIND AND NOT FAMILIAR WITH SORROUNDING. PARTICIPATED IN ALL THERAPIES AND TOLERATED WELL. Q1H VISUAL CHECKS. CALL LIGHT WITHIN REACH. FALL PRECAUTIONS IN PLACE
--- NOTE | 2019-05-11 13:31 | NUR ---
Nutrition: pt admit to rehab unit with acute metabolic encephalopathy, right pubic rami fracture. RD received consult via rehab admission orders. On regular diet eating 50-100% of meals. Pt reports son orders meals as she needs softer foods due to needing new dentures. Offered diet consistency change but pt would like to leave as is. Current weight down approx. 30# over 2 years, not significant and favorable considering present BMI remains 33.5, class 1 obesity. No planned interventions at this time, Consider low risk.
[2019-05-11 14:36] LABS: ALBUMIN 2.9 g/dL (3.4-5.0); MAGNESIUM 2.6 mg/dL (1.8-2.4)
--- NOTE | 2019-05-11 16:36 | NUR ---
I have reviewed the documentation by CLARK GARCES from 05/11/19 to 05/11/19 and I concur with it. YAMINI VASQUES, PT, DPT
[2019-05-11 19:45] VITALS: BP 124/58
--- NOTE | 2019-05-12 03:17 | NUR ---
assumed care at approx 1900 evening 05/11. pt sitting up in recliner resting at change of shift. pt alert and oriented x4, appropriate and cooperative. pt up to bsc with 1 assist with pt having less bm episodes. pt took hs meds with water tolerating well. pt unable to tolerate cpap machine and refusing to wear continuous pulse oximeter as pt stated it was keeping her awake. pt now wearing 02 at 2l per n/c and appears to be sleeping soundly. chair alarm on and call light in reach. will continue to monitor.
[2019-05-12 04:15] LABS: INR 3.2; PROTIME 32.9 Seconds (9.3-11.4)
[2019-05-12 09:54] VITALS: BP 128/67
--- NOTE | 2019-05-12 13:05 | NUR ---
ASSUMED CARES AT 0700. PT AWAKE, ALERT AND ORIENTED*4. C/O RIGHT NON-CARDIAC RELATED CHEST PAIN, HYDROCODONE ADMINISTERED NEEDED. VITALS REMAIN STABLE. PT PARTICIPATED IN ALL THERAPIES AND CONTINUES TO PROGRESS TOWARDS DC GOAL. UP WITH 1 MIN ASSIST, GB AND WALKER. Q1H VISUAL CHECKS. CALL LIGHT WITHIN REACH. FALL PRECAUTIONS IN PLACE
[2019-05-12 19:41] VITALS: BP 135/64
--- NOTE | 2019-05-13 02:07 | NUR ---
PT ALERT AND ORIENTED X 4, FORGETFUL. SLEEPING IN RECLINER. PT REFUSED BIPAP TONIGHT. C/O NON-CARDIAC CHEST PAIN. HYDROCODONE GIVEN ORDERED. CHAIR ALARM ON FOR SAFETY. PT APPEARS TO BE SLEEPING ON HOURLY ROUNDS.
[2019-05-13 05:48] LABS: INR 2.6; PROTIME 27.5 Seconds (9.3-11.4)
[2019-05-13 08:00] VITALS: BP 160/88
--- NOTE | 2019-05-13 13:30 | NUR ---
ASSUMED CARE OF PT AT 0700. PT IS A&OX4. IS ON 1L OF O2/NC. REPORTS PAIN IN GROIN THAT IS BEING MANAGED WITH ORAL PAIN MEDS. PT IS STABLE. IS UP WITH 1 ASSIST, GB, WALKER TO BSD. PT IS LEGALLY BLIND. REQUIRES CUEING FOR MEALS & TRANSFER ASSISTANCE. FALL PRECAUTIONS & HOURLY ROUNDING CONTINUED THIS SHIFT. LABS & VITALS REVIEWED. PT IS CURRENTLY UP IN RECLINER. FAMILY AT BEDSIDE. CALL LIGHT WITHIN REACH. WILL CONTINUE TO MONITOR.
--- NOTE | 2019-05-13 17:10 | HC ---
[facility] [address] [place] [address] CONSULTATION Name: MARLIN LOZANO Room #: 515-P ADM IN M.R.#: [id number] Admission: 05/10/19 Attend Phys: Arturo Russo MD Discharge: Date of : [birth year] Report #: [id number] THIS REPORT FOR: //name// CC: Arturo Herr DATE OF SERVICE: 05/12/2019 NEUROBEHAVIORAL STATUS EXAMINATION AGE: 88. ATTENDING PHYSICIAN: Arturo Russo MD BELT FIXER: Adin Mulligan, PhD CLINICAL PRESENTATION: The patient is an 88-year-old female admitted to the [facility] Rehabilitation Unit for comprehensive inpatient rehabilitation program. The patient was initially admitted to the [facility] on 05/07/2019 after a fall at her home. Her son found her on the floor of the bathroom as she was unable to ambulate. She reports having been uncertain as to how she ended up in that room. Patient is blind and is amnestic surrounding the deterioration in her condition and early hospitalization. condition. Her son reports that she had a period of disorientation about 2 days prior to her fall in which she felt that guests including family members were in her house. The patient has no recollection of having had the delusional experience, suggesting a several day period of delirium. The patient's diagnosis on admission to the rehabilitation unit included recurrent falls with gait instability, vitreous hemorrhage with plans to follow up with [employer] as an outpatient, chronic atrial fibrillation, on anticoagulation, degenerative arthritis, legally blind and chronic atrial fibrillation. A complete description of her medical condition and history can be found in her medical record. Neuropsychological consultation was requested to provide assistance in the assessment of cognitive and emotional status and to provide recommendations and services. 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 She has three children. The children, all live within the [place] area. Her son is reported to visit often and help her in the management of medication, finances and nutrition. However, it should be noted that the patient was taking medication on her own home in the morning and relying on her tactile [facility] [address] [place] [address] CONSULTATION Name: MARLIN LOZANO Room #: 515-P [facility] IN ..#: [id number] Admission: 05/10/19 Attend Phys: Arturo Russo MD Discharge: Date of : [birth year] Report #: [id number] stimulation to clarify what medication she was taking. TECHNIQUES UTILIZED: Clinical interview, review of medical records, staff consultation and behavioral observation, mini mental status exam 2 standard version and verbal fluency assessment (letter and category) and family consultation - son. EXAMINATION FINDINGS: The patient was alert and cooperative with the assessment. As indicated, she is amnestic for a period of time before and after her immediate hospitalization. She describes her symptoms to include decreased appetite and anxiety and is worried about her level of functioning upon her return home. She does not report difficulty with sleep or depressed mood. The patient and her son do not report her as having trouble with memory. However, variability in word finding is noted. Her performance on the MMSE 2 brief version was extremely low with a raw score of 9 out of 16. She was 3/3 for initial registration, 2/5 for orientation to time, 4/[address] and 0/3 for immediate recall of 3 items after a brief time delay and distraction. Visual deficits interfered with the ability to assess visual spatial organization and planning. Letter fluency was extremely low with a raw score of 12, T score 28 and percentile rank of 1. Category fluency was in the borderline range with a raw score of 24, T score 31 and percentile rank of 3. Total fluency was extremely low with a raw score of 36, T score of 27 and percentile rank of 1. Brief abstract reasoning test suggests a mild impairment. The patient is presenting with deficits in orientation, sustained concentration and attention and immediate memory. She was 0/5 for serial sevens. Verbal fluency assessment suggests moderate to severe deficits, which likely is a reflection of executive dysfunction. At this time, the patient is presenting with a decline in cognition that is at least moderate. She is legally blind and also utilizes hearing aids. Deficits in vision and hearing are likely to contribute to diminished level of functional mobility along with her decline in cognition. DIAGNOSTIC IMPRESSION: Major neurocognitive disorder (dementia), unspecified, without behavior disorder, likely in the moderate range given the extent of assistance that is required for maintaining independence. Unspecified anxiety disorder. [address] [address] CONSULTATION Name: MARLIN LOZANO Room #: 515-P [facility] IN M.R.#: [id number] Admission: 05/10/19 Attend Phys: Arturo Russo MD Discharge: Date of : [birth year] Report #: [id number] RECOMMENDATIONS: The patient will require increased supervision upon her return home. Assistance is necessary for the management of medication, finances and nutrition. However, her ability to independently take her medication safely, without supervision is very poor. Sensory impairment further hinders her ability to compensate for deficits. Twenty four hour supervision is recommended. Thank you very much for allowing me to provide the consultation on this patient. <ELECTRONICALLY SIGNED> By: Adin Mulligan, PhD 05/13/19 1710 [id number] Adin Mulligan, PhD /nt
[2019-05-13 19:25] VITALS: BP 123/67
--- NOTE | 2019-05-14 03:36 | NUR ---
assumed care at approx 1900 evening 05/13. pt alert and oriented x4, appropriate and cooperative. pt stated it was a quiet day. pt up to bsc with 1 assist tolerating well. pt refusing to wear cpap at night. 02 at 2l per n/c. pt appears to be sleeping soundly with hourly rounding checks. bed alarm on and call light in reach. will continue to monitor.
[2019-05-14 05:38] LABS: INR 1.8; PROTIME 18.5 Seconds (9.3-11.4)
[2019-05-14 09:39] VITALS: BP 149/59
--- NOTE | 2019-05-14 09:43 | NUR ---
ASSUMED CARE OF PT AT 0700. REPORTS SLEPT FAIR. OT HELPED PT TO HAVE SHOWER THIS AM. C/O RIGHT GROIN 04/17 PRIOR PHYSICAL THERAPY. VOLTARNE GEL APPLIED. VSS ON RA. MORNING MEDS GIVEN. PT IS A&OX4. PT IS STABLE. IS UP WITH 1 ASSIST, GB, WALKER TO BSD. PT IS LEGALLY BLIND. REQUIRES CUEING FOR MEALS & TRANSFER ASSISTANCE. OFFERED SUPPORTIVE CARE. ENCOURAGED PT TO VOICE HER NEEDS. FALL PRECAUTIONS & HOURLY ROUNDING CONTINUED THIS SHIFT. LABS & VITALS REVIEWED. UP AND WALKS WITH THERAPIST NOW. WILL CONTINUE TO [facility].
[2019-05-14 20:00] VITALS: BP 122/57
--- NOTE | 2019-05-15 02:13 | NUR ---
PT ALERT AND ORIENTED X 4, FORGETFUL. TRANSFERS TO BSC WITH ASSIST X 1. BIPAP ON DURING THE NIGHT. NO BM SINCE 05/11. DULCOLAX SUPP GIVEN WITH NO RESULTS YET. PT DENIES PAIN OR DISCOMFORT. BED ALARM ON FOR SAFETY. PT APPEARS TO BE SLEEPING ON HOURLY ROUNDS.
[2019-05-15 06:25] LABS: INR 1.5; PROTIME 15.4 Seconds (9.3-11.4)
[2019-05-15 08:15] VITALS: BP 167/83
--- NOTE | 2019-05-15 09:59 | NUR ---
ASSUMED CARE OF PT AT 0715. PT IS A&OX4, VITAL SIGNS ARE STABLE. REPORTS PAIN IN RIGHT LEG, MANAGED WITH PO MEDICATIONS. PT PARTICIPATING IN SCHEDULED THERAPIES. ORDERS FOR MAGNESIUM CITRATE FOR CONSTIPATION, NURSING WILL ADMINISTER FOLLOWING THERAPIES AT PT REQUEST. PT PLATINUM AND BLIND, BUT ABLE TO COMMUNICATE APPROPRIATELY. FALL PRECAUTIONS IN PLACE AND NURSING WILL CONTINUE TO MONITOR.
--- NOTE | 2019-05-15 13:21 | NUR ---
team meeting, recommendation: re team with dc 05/23/19, increased family support, recommendation of life alert, assist with pills and bills. hh (pt, ot,st, nursing and sw).
--- NOTE | 2019-05-15 15:50 | NUR ---
I have reviewed the documentation by CLARK GARCES from 05/15/2019 to 05/15/19 and I concur with it. YAMINI VASQUES, PT, DPT
[2019-05-15 19:45] VITALS: BP 110/50
--- NOTE | 2019-05-16 02:12 | NUR ---
assumed care at approx 1900 evening 05/15. pt sitting up in recliner at change of shift resting. pt alert and oriented x4, hard of hearing and legally blind. pt pleasant and cooperative. pt took hs meds with no problems and pt has had 2 bms this shift. pt wearing cpap machine. pt appears to be sleeping soundly at present. bed alarm on, call light in reach. will continue with hourly rounding.
[2019-05-16 07:14] LABS: INR 1.6; PROTIME 16.9 Seconds (9.3-11.4)
[2019-05-16 08:00] VITALS: BP 135/65
--- NOTE | 2019-05-16 10:10 | NUR ---
DISCHARGE PLAN. ANTICIPATED DISCHARGE TO HOME WITH HOME [facility]ALTH SERVICES 05/23 PER UNIT CM. REFERRAL FAXED TO [facility] PER PATIENT REQUEST. VERIFIED REFERRAL RECEIVED. AWAITING RESPONSE FROM [facility]. FOLLOWING TO ASSIST.
--- NOTE | 2019-05-16 14:14 | NUR ---
ASSUMED CARE AT 0700. PATIENT IS ALERT AND ORIENTED X4. PATIENT IS LEGALLLY BLIND. PATIENT IS [place] BILATERALLY. LUNGS ARE CLEAR AND DEMINISHED. PATIENT IS UP TO THE BR TO VOID LAURENCE COLORED URINE, AND HAVE MULTIPLE BM'S TODAY. FALL AND SAFETY PROTOCOLS IN PLACE. C/O PAIN IN HER RIGHT HIP AND KNEE. MEDICATED WITH PRN PAIN MED. CONTINUES TO BE UP WITH WALKER AND GAIT FOR TRANSFERS. UP IN RECLINER FOR MEALS. WILL CONTINUE TO MONITER.
--- NOTE | 2019-05-16 15:52 | NUR ---
I have reviewed the documentation by CLARK GARCES from 05/16/19 to 05/16/19 and I concur with it. YAMINI VASQUES, PT, DPT
[2019-05-16 20:05] VITALS: BP 129/62
--- NOTE | 2019-05-17 02:00 | NUR ---
PT ALERT AND ORIENTED X 4. TRANSFERRED TO BED AT WITH ASSIST X 1. CPAP ON DURING THE NIGHT. PT C/O NON-CARDIAC CHEST PAIN. HYDROCODONE GIVEN ORDERED. PT SLEEPING UPON REASSESSMENT. BED ALARM ON FOR SAFETY. PT APPEARS TO BE SLEEPING ON HOURLY ROUNDS.
[2019-05-17 05:37] LABS: INR 1.9; PROTIME 19.3 Seconds (9.3-11.4)
[2019-05-17 10:00] VITALS: BP 157/77
--- NOTE | 2019-05-17 15:53 | NUR ---
I have reviewed the documentation by CLARK GARCES from 05/17/19 to 05/17/19 and I concur with it. YAMINI VASQUES, PT, DPT
--- NOTE | 2019-05-17 20:00 | NUR ---
PATIENT ALERT AND ORIENTED AND COOPERATIVE WITH POC. WALKS WITH SBA TO BATHROOM. SON AT BEDSIDE THIS EVENING.
[2019-05-17 20:18] VITALS: BP 140/57
--- NOTE | 2019-05-18 02:37 | NUR ---
PT ALERT AND ORIENTED X 4. AMB TO BR WITH WALKER AND ASSIST X 1. CPAP ON DURING THE NIGHT. PT C/O PAIN IN RIGHT GROIN. HYDROCODONE GIVEN ORDERED. PT SLEEPING IN RECLINER TONIGHT. CHAIR ALARM ON FOR SAFETY. PT APPEARS TO BE SLEEPING ON HOURLY ROUNDS.
[2019-05-18 05:34] LABS: PROTIME 20.5 Seconds (9.3-11.4)
[2019-05-18 10:01] VITALS: BP 136/76
--- NOTE | 2019-05-18 10:19 | NUR ---
Nutrition: Seen for weekly follow up on rehab. Continues on a regular diet and is averaging ~75% of meals per the last 4 consecutive days (05/14-05/17). Voices enjoyment of the food and states she has a hard time finishing her entire plate. Offered reassurance that is OK to consume as much as able and stop when satisfied/full. Discussed larger portions of meals at time and encouraged her to work on bites of high protein sources first - explaining what sources count. Pt voices "oh cottage cheese, I haven't had that here yet." RD plans to add serving to daily lunch or dinner today for added protein benefit. On a B12 supplement and scheduled bowel regimen with recent BM 05/17. No new nutrition concerns/interventions indicated. Low nutrition risk.
--- NOTE | 2019-05-18 10:33 | NUR ---
ASSUMED CARE AT 0700. PATIENT IS ALERT AND ORIENTED X4. PATIENT IS BLIND AND [place]. LUNGS ARE CLEAR AND DEMINISHED. ABD IS SOFT WITH BSX4. PATIENT IS UP TO THE BR TO VOID LAURENCE COLORED URINE. FALL AND SAFETY PROTOCOLS IN PLACE. C/O PAIN IN HER RIGHT LEG AND HIP. MEDICATED WITH PRN PAIN MED. CONTINUES TO PROGRESS TOWARDS D/C GOALS. WILL CONTINUE TO MONITER.
[2019-05-18 21:06] VITALS: BP 132/68
--- NOTE | 2019-05-18 22:54 | NUR ---
PT SITTING UP IN CHAIR LISTENING TO HEAD PHONE BOOKS. PT DOES TURN HEAD TO VOICE TO COMMUNICATE WITH STAFF, BRIGHT AFFECT. PRN FOR GROIN/LEG PAIN REQUESTED AND PROVIDED. PT HAD HS SNACK. AMBULATED WITH WALKER TO RESTROOM. RT CALLED FOR CPAP AT HS.
[2019-05-19 06:11] LABS: HEMOGLOBIN 12.9 gm/dL (12.0-15.0); MCH 26.3 pg (26.0-34.0); MCHC 32.2 g/dL (28.0-37.0); MCV 81.8 fL (80.0-100.0); RBC 4.89 mil/uL (4.20-5.00); RDW 14.9 % (10.5-14.5); WBC 8.2 thou/uL (4.0-11.0)
[2019-05-19 06:23] LABS: INR 2.2; PROTIME 23.1 Seconds (9.3-11.4)
[2019-05-19 06:24] LABS: CALCIUM 9.6 mg/dL (8.5-10.1); CREATININE 0.8 mg/dL (0.6-1.0); POTASSIUM 3.9 mmol/L (3.5-5.1)
[2019-05-19 08:01] VITALS: BP 131/57
--- NOTE | 2019-05-19 08:01 | NUR ---
ASSUMED CARE AT 0700. PATIENT IS ALERT AND ORIENTED X4. PATIENT NESBITT'S, YARDAGE TUFTING MACHINE OPERATOR ARE EQUAL. PATIENT IS BLIND AND [place]. PATIENT IS UP IN CHAIR. PATIENT IS UP WITH WALKER AND GAIT BELT TO BR TO VOID LAURENCE COLORED URINE. FALL AND SAFETY PROTOCOLS IN PLACE. C/O PAIN IN HER RIGHT HIP AND LEG. MEDICATED WITH PRN PAIN MED. WILL CONTINUE TO MONITER.
--- NOTE | 2019-05-20 02:43 | NUR ---
assumed care at approx 1900 evening 05/19. pt sitting up in recliner at change of shift resting and listening to movie on tv. pt pleasant and cooperative. pt up to bathroom to void and have so far 3 bms tonight. pt took hs meds with water tolerating well. chair alarm on and call light in reach. will continue to monitor.
[2019-05-20 06:10] LABS: INR 2.2; PROTIME 22.8 Seconds (9.3-11.4)
[2019-05-20 12:15] VITALS: BP 142/62
[2019-05-20 18:00] VITALS: BP 101/67
--- NOTE | 2019-05-20 20:06 | NUR ---
PATIENT ALERT AND ORIENTED WITH 2 OF THE SONS COMING DURING THE DAY AT DIFFERING TIMES. PATIENT AND SON ANTICIPATE DISCHARGE ON TUESDAY AND INDICATD THEY CAN HIRE PERSONAL CARE ASSISTANTS THROUGHOUT THE NIGHT. PATIENT CONTINUES TO HAVE LOOSE STOOLS. PATIENT WALKED BACK AND FORTH BATHROOM SEVERAL TIMES AND ALSO WALKED AROUNG REHAB UNIT ONE TIME WITH SBA.
[2019-05-20 20:12] VITALS: BP 142/56
--- NOTE | 2019-05-21 02:34 | NUR ---
assumed care at approx 1900 evening 05/20. pt sitting up in recliner at change of shift alert and oriented x4, appropriate and cooperative. pt declined to wear cpap and pulse oximeter at bedtime. pt states she does not sleep well with either on. just checked pts 02 sat and 96% on room air. pt standby assist up to bathroom to void and pt also incontinent of urine wearing pad and brief. pt now back to recliner, chair alarm on and call light in reach. will continue to monitor.
[2019-05-21 05:09] LABS: INR 2.2; PROTIME 22.4 Seconds (9.3-11.4)
[2019-05-21 08:30] VITALS: BP 175/75
--- NOTE | 2019-05-21 08:57 | NUR ---
Received awake, sitting on recliner- as per assembler 1st shift nurse pt prefers to stay on it most of the time. A+Ox4, [place], legally blind. Assisted in ADLs. On room air-saturating at 99%, uses CPAP or O2 at 2lpm via NC during the night. Medications given as prescribed, able to swallow medications whole w/o diffculty. Able to ambulate with AO1 using gait belt and walker. Falls bundle in place. No complaints of pain upon assessment this AM- informed pt that pain meds are available, will let nurse know once she wants it. Vital signs stable- with elevated BP this AM- scheduled BP meds given as prescribed- to recheck BP.
[2019-05-21 10:39] VITALS: BP 148/77
[2019-05-21 19:02] VITALS: BP 162/70
--- NOTE | 2019-05-22 03:52 | NUR ---
ASSESSMENT: PT REMAIN ALERT AND ORIENT TIMES THREE. UP WITH GUARD ASSIST TO BR. PT IS LEGALLY BLIND. [place] WITH AIDS. VSS, AFEBRILE. WILL CONTINUE TO MONITOR,
[2019-05-22 06:13] LABS: INR 2.3; PROTIME 24.2 Seconds (9.3-11.4)
[2019-05-22 08:10] VITALS: BP 145/66
--- NOTE | 2019-05-22 09:11 | NUR ---
ASSUMED CARE AT 0700. PATIENT IS ALERT AND ORIENTED X2. PATIENT HAS SOME CONFUSION AT TIMES. LUNGS ARE CLEAR AND DEMINISHED . PATIENT ABD IS SOFT WITH BSX4. PATIENT HAS MEANS TO DD, DRAINING LAURENCE COLORED URINE. UP TO THE DINING ROOM PER W/C FOR BREAKFAST. UP WITH ASSIST OF 1-2 STAFF WITH WALKER AND GAIT BELT. FALL AND SAFETY PROTOCOLS IN PLACE. DENIES ANY PAIN AT THIS TIME. CONTINUES TO PROGRESS SLOWLY TOWARDS D/C GOALS. WILL CONTINUE TO MONITER.
--- NOTE | 2019-05-22 09:32 | NUR ---
ASSUMED CARE AT 0700. PATIENT IS ALERT AND ORIENTED X4. PATIENT NESBITT, SOLUTIONS DEVELOPMENT ANALYST ARE EQUAL. PATIENT IS BLIND AND THREE AFFILIATED. LUNGS ARE CLEAR AND DEMINISHED. CONTINUES ON RESPIRATORY TX. UP TO THE BATHROOM TO VOID LAURENCE COLORED URINE. UP IN RECLINER FOR MEALS. FALL AND SAFETY PROTOCOL IN PLACE. C/O PAIN IN HER RIGHT HIP AND LEG. MEDICATED WITH PRN PAIN MED. CONTINUES TO PROGRESS TOWARDS D/C GOALS. WILL CONTINUE TO MONITER.
--- NOTE | 2019-05-22 12:32 | NUR ---
team meeting, recommendation: 16th tomorrow, [facility] (pt,ot,st,nursing and sw). family to cont work with of extra assistance care givers and life alert . family will assist with pills and bills. pt reported to therapy that has fww.
[2019-05-22 22:42] VITALS: BP 137/53
--- NOTE | 2019-05-23 00:34 | NUR ---
PT ASSESSMENT COMPLETED AND VSS. MEDS GIVEN ORDERED AND WELL TOLERATED. FALL PRECAUTIONS IN PLACE. UP TO THE BATHROOM SEVERAL TIMES. PT WEARS BRIEF AND PAD FOR INCONTINENCE. PT SLEEPING IN CHAIR. SAT WNL ON 3L NC. PT DENEIS NEEDS. PAIN PILLS HELPFULS. WILL CONTINUE TO MONITOR FREQUENTLY.
[2019-05-23 08:00] VITALS: BP 152/69
[2019-05-23] MEDS ORDERED: VITAMIN B-12500 MCG PO (09:45)
[2019-05-23] MEDS ORDERED: CLARITIN10 MG PO (09:45)
[2019-05-23] MEDS ORDERED: ALBUTEROL2.5 MG/31 INH (09:45)
--- NOTE | 2019-05-23 09:45 | NUR ---
ASSUMED CARE AT 0700. PATIENT IS ALERT AND ORIENTED X4. PATIENT NESBITT'S, ASSEMBLY LINE LEADER ARE EQUAL. LUNGS ARE CLEAR. ABD IS SOFT WITH BSX4. PATIENT IS UP WITH GAIT BELT AND WALKER TO THE BATHROOM TO VOID LAURENCE COLORED URINE. PATIENT IS BLIND AND [place]. UP IN RECLINER FOR MEALS. FALL AND SAFETY PROTOCOLS IN PLACE. C/O RIGHT HIP AND LEG PAIN. MEDICATED WITH PRN PAIN MED. CONTNUES TO PROGRESS TOWARDS D/C GOALS. WILL CONTINUE TO MONITER.
[2019-05-23 10:10] VITALS: BP 137/56
--- NOTE | 2019-05-23 12:26 | NUR ---
DISCHARGE INSTRUCTIONS GIVEN TO PATIENT AND SON. PATIENT VERBALIZED UNDERSTANDING OF INSTRUCTIONS. PATIENT LEFT VIA W/C TO MEDICAL MALL ENTRANCE IN GOOD CONDITION.
--- NOTE | 2019-05-23 13:11 | PLAN ---
[facility] [address] [place] [address] REHAB UNIT PLAN OF CARE Name: BLAKEMARLIN Bridgett Room #: 515-P [facility] IN M.R.#: [id number] Admission: 05/10/19 Attend Phys: Arturo Russo MD Discharge: 05/23/19 Date of : [birth year] Report #: [id number] THIS REPORT FOR: //name// CC: Arturo Herr DATE OF SERVICE: 05/12/2019 PROGRESS NOTE AND OVERALL PLAN OF CARE SUBJECTIVE: The patient was seen back earlier. Temperature 36.6, pulse 80, respirations 20, blood pressure 128/67. She typically wears the CPAP at night when sleeping, although prefers to wear the nasal cannula if she can tolerate it. She was in no distress. Cooperative with therapies. Orthopedics came by and are allowing her weightbearing as tolerated. Functionally, she transfers with min assist. Gait is min assist 40 feet with a front-wheeled walker. In occupational therapy, lower body dressing is max assist. She has mild comprehensive deficits and has moderate cognitive deficits. Transfers have been min assist. One step with mod assist. She has ambulated up to 40 feet with a front-wheeled walker with min assist. ASSESSMENT: 1. Recurrent falls with gait instability. 2. Vitreous hemorrhage with plans to follow up with her automotive parts counter person as an outpatient. 3. Pelvic fracture, allowed weightbearing as tolerated. We will consider having the DEXA scan done as an outpatient. 4. Chronic atrial fibrillation, on anticoagulation. 5. Degenerative arthritis. 6. Legally blind. PLAN: The overall plan of care is based on the preadmission screen, post-admission physician evaluation and information garnered from therapy assessments. 1. Estimated length of stay is probably 7-14 days pending progress. 2. Medical prognosis is reasonably good. 3. Anticipated interventions includes the interdisciplinary acute inpatient rehabilitation program. 4. Anticipated functional outcomes would be for the patient to become modified independent with transfers, mobility and ADLs at a walker level as well as improvement in cognition. 5. Discharge destination would be for the patient to return back to her home setting where she lives at home in a house. She does have a caregiver tactical air control party manager. 6. Expected therapy includes PT [facility] [address] [place] [address] REHAB UNIT PLAN OF CARE Name: MARLIN LOZANO Bridgett Room #: 515-P [facility].#: [id number] Admission: 05/10/19 Attend Phys: Arturo Russo MD Discharge: 05/23/19 Date of : [birth year] Report #: [id number] and OT and speech 1 hour per day each five days a week throughout the duration of the acute inpatient rehabilitation stay. <ELECTRONICALLY SIGNED> By: Arturo Russo MD 05/23/19 1311 [id number] Arturo Russo MD /PMT
--- NOTE | 2019-05-23 13:11 | H ---
[facility] [place] [address] [place] [address] HISTORY AND PHYSICAL Name: BLAKEMARLIN A Room #: 515-P [facility] [place] ..#: [id number] Admission: 05/10/19 Attend Phys: Arturo Russo MD Discharge: 05/23/19 Date of : [birth year] Report #: [id number] THIS REPORT FOR: //name// CC: Arturo Herr DATE OF SERVICE: 05/10/2019 HISTORY AND PHYSICAL AND POST-ADMISSION PHYSICIAN EVALUATION HISTORY OF PRESENT ILLNESS: The patient is an 88-year-old white female who was originally admitted to [facility] on 05/07/2019 after a fall at home. It was unwitnessed. Her son found her on the floor. She had right hip pain and inability to ambulate. X-ray was negative for acute fracture. There was concern regarding urinary tract infection. She was placed on IV antibiotics. There is documentation of mental status changes and toxic metabolic encephalopathy. CT of the brain suggests significant small vessel ischemic disease. She was monitored regarding chronic atrial fibrillation. She also had a right orbital lobe lesion with plans for Ophthalmology followup as an outpatient. She was changed over to oral antibiotics for urinary tract infection. She is noted to have a significant functional decline from her premorbid status and has now been admitted for acute in-hospital inpatient rehabilitation. PAST MEDICAL HISTORY: Heart disease, hypertension. PAST SURGICAL HISTORY: Hysterectomy, mastectomy, total knee replacement prolapse repair. MEDICATIONS: Please see the full medication listing. ALLERGIES: STATINS, MORPHINE, SULFA. SOCIAL HISTORY: Lives at home in a house. No stairs, has a caregiver 4 hours a day, 3 times a week and her 3 sons check in on her daily and provide IADLs. She was independent with basic ADLs. Utilized a front-wheeled walker. She had at least 4 falls in the last year, related to balance. She is legally blind. HABITS: Prior smoker, quit 10 years ago, 1 pack per day. Alcohol use was rare. REVIEW OF SYSTEMS: No current complaints of chest pain, shortness of breath or abdominal discomfort. PHYSICAL EXAMINATION: GENERAL: An 88-year-old white female in no obvious distress. VITAL SIGNS: Last recorded temperature 98, pulse 83, respirations 18, and blood [address] [address] HISTORY AND PHYSICAL Name: MARLIN LOZANO Room #: 515-P [facility] [place] [facility]#: [id number] Admission: 05/10/19 Attend Phys: Arturo Russo MD Discharge: 05/23/19 Date of : [birth year] Report #: [id number] pressure 123/64. NEUROLOGIC: She is alert, pleasant. She does have decreased vision, which is premorbid. HEAD, EYES, EARS, NOSE, AND THROAT: Facies are symmetric. CHEST: Clear to auscultation, which appears clear. CARDIOVASCULAR: Regular rate and rhythm. ABDOMEN: Bowel sounds positive, nontender. GENITOURINARY AND RECTAL: Deferred. EXTREMITIES: Functional range of motion of both upper extremities. Strength is grade 4-/5. Lower extremity, she has some discomfort of her right groin and moving the right hip. There is no focal calf swelling. Strength is grade 3+/5 right lower extremity with some discomfort is noted distally is more of a 4-. Left lower extremity is more of a 4-. No focal calf swelling. Tone appeared to be intact. A CT scan of the pelvis did reveal evidence of probable subtle minimally displaced fractures of the right inferior and superior pubic ramus. She has been doing some limited weightbearing. Ortho was consulted upon admission and we will see if they want to make any changes. ASSESSMENT: 1. Recurrent falls with gait instability. 2. Vitreous hemorrhage with plans to follow up with her tie worker as an outpatient. 3. Chronic atrial fibrillation, on anticoagulation. 4. Degenerative arthritis. 5. Legally blind. 6. Chronic atrial fibrillation. PLAN: The patient is admitted for acute in-hospital inpatient rehabilitation. From a postadmission physician evaluation perspective, there are no relevant changes since the preadmission screening. Please see the above review of prior and current medical and functional conditions and comorbidities. Please see the patient's previous and current functional status. As far as risk of complications, the patient has multiple medical comorbidities as noted above. Initial plan of care involves the interdisciplinary acute inpatient rehabilitation program with goal of maximizing her functional dependence that she can hopefully return back to her prior living situation. Prognosis is reasonably good with estimated length of stay probably at least 7-14 days pending progress. Potential barriers would include her multiple medical comorbidities and decreased functional status. The patient meets diagnostic criteria for an acute in-hospital inpatient rehabilitation stay. She meets the medical necessity criteria and we will have the alliances consultant physicians continue to follow. She does have the tolerance for therapies and has appropriate discharge goals back to the home setting. We will [address] [address] HISTORY AND PHYSICAL Name: MARLIN LOZANO Room #: 515-P [facility] IN M.R.#: [id number] Admission: 05/10/19 Attend Phys: Arturo Russo MD Discharge: 05/23/19 Date of : [birth year] Report #: [id number] need to see how things go as far as orthopedic followup with the pelvic fractures. <ELECTRONICALLY SIGNED> By: Arturo Russo MD 05/23/19 [id number] Arturo Russo MD /PMT
== END 2019-05-23 12:30 | disposition home health service (06) | DRG 92 ==
LOC: SBH 13:38 → ENTRNSPT 05-23 12:28 → CMPTRNSPT 05-23 12:37
PROVIDERS: Internal Medicine; Nurse Practitioner; Nurse Practitioner Family; ADMIT Physical Medicine & Rehabilitation
PROC: 5A09357 Assistance with Respiratory Ventilation, Less than 24 Consecutive Hours, Continuous Positive Airway Pressure (ICD-10-PCS; principal; 2019-05-10)
PROC: 5A09357 Assistance with Respiratory Ventilation, Less than 24 Consecutive Hours, Continuous Positive Airway Pressure (ICD-10-PCS; 2019-05-11)
PROC: 5A09357 Assistance with Respiratory Ventilation, Less than 24 Consecutive Hours, Continuous Positive Airway Pressure (ICD-10-PCS; 2019-05-12)
PROC: 5A09357 Assistance with Respiratory Ventilation, Less than 24 Consecutive Hours, Continuous Positive Airway Pressure (ICD-10-PCS; 2019-05-14)
PROC: 5A09357 Assistance with Respiratory Ventilation, Less than 24 Consecutive Hours, Continuous Positive Airway Pressure (ICD-10-PCS; 2019-05-16)
PROC: 5A09357 Assistance with Respiratory Ventilation, Less than 24 Consecutive Hours, Continuous Positive Airway Pressure (ICD-10-PCS; 2019-05-17)
PROC: 5A09357 Assistance with Respiratory Ventilation, Less than 24 Consecutive Hours, Continuous Positive Airway Pressure (ICD-10-PCS; 2019-05-18)
PROC: 5A09357 Assistance with Respiratory Ventilation, Less than 24 Consecutive Hours, Continuous Positive Airway Pressure (ICD-10-PCS; 2019-05-19)
PROC: 5A09357 Assistance with Respiratory Ventilation, Less than 24 Consecutive Hours, Continuous Positive Airway Pressure (ICD-10-PCS; 2019-05-20)
DX: G92 Toxic encephalopathy (principal); S32.89XA Fracture of other parts of pelvis, initial encounter for closed fracture; N39.0 Urinary tract infection, site not specified; I48.20 Chronic atrial fibrillation, unspecified; R26.9 Unspecified abnormalities of gait and mobility; M19.90 Unspecified osteoarthritis, unspecified site; H54.8 Legal blindness, as defined in USA; F01.50 Vascular dementia, unspecified severity, without behavioral disturbance, psychotic disturbance, mood disturbance, and anxiety; F41.9 Anxiety disorder, unspecified; I10 Essential (primary) hypertension; E87.6 Hypokalemia; J44.9 Chronic obstructive pulmonary disease, unspecified; Z60.2 Problems related to living alone; Z96.659 Presence of unspecified artificial knee joint; W19.XXXA Unspecified fall, initial encounter; R29.6 Repeated falls; H43.11 Vitreous hemorrhage, right eye; H05.89 Other disorders of orbit; R63.4 Abnormal weight loss; E53.8 Deficiency of other specified B group vitamins; K59.00 Constipation, unspecified; G47.33 Obstructive sleep apnea (adult) (pediatric); M94.0 Chondrocostal junction syndrome [Tietze]; Z90.710 Acquired absence of both cervix and uterus; Z90.10 Acquired absence of unspecified breast and nipple; Z88.2 Allergy status to sulfonamides; Z88.8 Allergy status to other drugs, medicaments and biological substances; Z87.891 Personal history of nicotine dependence; Y93.89 Activity, other specified; Y92.89 Other specified places as the place of occurrence of the external cause; Y99.8 Other external cause status; Z79.01 Long term (current) use of anticoagulants; Z86.711 Personal history of pulmonary embolism; Z86.718 Personal history of other venous thrombosis and embolism; Z68.33 Body mass index [BMI] 33.0-33.9, adult
CPT/HCPCS: 10112

== ENCOUNTER → 2019-08-14 | Outpatient (CLI) | payer OTHER, MEDICARE ==
[~2019-08-14] MED LIST changes: +ALBUTEROL2.5 MG/31 INH; +CLARITIN10 MG PO; +VITAMIN B-12500 MCG PO
== END ==
LOC: NUC 10:58
DX: M81.0 Age-related osteoporosis without current pathological fracture (principal)